=== PATIENT | female | born 2000 | race Caucasian/White ===

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

== ENCOUNTER 2025-04-25 17:12 | Outpatient (CLI) | payer BC, SELFPAY ==
[2025-04-25] VITALS (10 sets, daily range): BP systolic 132–133; BP diastolic 80; PULSE 86–103; O2SAT 97–99
--- OUTSIDE RECORDS SUMMARY | 2025-04-25 17:25 | XMS_ITS | Clinical Summary ---
Author Organization [facility] Address [address] [place] [address] Care Team Providers Care Civil Engineering Specialist Name Role Phone Lisette Guido DNP Primary Care Provi luisa Allergies Active Allergy Reactions Criticality Noted Date Comments Fish Containing Products Other (See comments) Low 0 12/22/2023 Grass Pollen Other (See comments) Low 12/22/2023 Soy Angioedema High 02/09/[address] (CYMBALTA) 30 mg capsule Take 1 capsule (30 mg total) by mouth daily Active escitalopram (LEXAPRO) 20 mg tablet Take 1 tablet (20 mg total) by mouth daily Active Breo Ellipta 200-25 mcg/dose diskus inhaler Inhale 1 puff daily 4 Active methylphenidate ER (CONCERTA) 18 mg CR tablet Take 1 tablet (18 mg total) by mouth daily Active fluticasone propionate (FLONASE) 50 mcg/actuation nasal sprayIndication s:Allergic rhinitis due to animal hair and dander Administer 2 sprays into each nostril daily 3 each 4 5 Active cetirizine (ZyrTEC) 10 mg tablet Take 1 tablet (10 mg total) by mouth daily 90 tablet 3 5 Active PNV with [id number] 27 mg iron- 1 mg tabletIndicatio ns: Take 1 tablet by mouth daily 90 tablet 3 5 Active montelukast (SINGULAIR) 10 mg tabletIndicatio ns:Maintenance Therapy for Asthma Take 1 tablet (10 mg total) by mouth nightly 90 tablet 3 5 10/20/19 26 Active Active Problems Problem Noted Date Diagnosed Date VALENTINO (generalized anxiety disorder) 10/19/2024 Assessment & Plan (10/19/2024 9:42 AM CDT): Managed by Psychiatry and Psychology Chronic and stable Moderate episode of recurrent major depressive d isorder 10/19/2024 Assessment & Plan (10/19/2024 10:15 AM CDT): Managed by Psychiatry and Psychology Chronic and stable Adjustment disorder with anxiety 10/19/2024 Assessment & Plan (10/19/2024 9:19 AM CDT): Managed by Psychiatry and Psychology Chronic and stable Marijuana smoker 10/19/2024 Assessment & Plan (10/19/2024 10:15 AM CDT): Recommend stopping marijuana usage 10/19/2024 Assessment & Plan (10/19/2024 9:02 AM CDT): +UPT Refer to [employer] Class 2 obesity without seri ous comorbidity with body mass index (BMI) of 36.0 to 36.9 in adult 10/19/2024 Environmental and seasonal allergies 10/19/2024 Assessment & Plan (10/19/2024 10:17 AM CDT): Chronic and stable Continue cetirizine 10 mg daily Continue Flonase nasal spray daily Start Singulair 10 mg nightly Medication and side effects reviewed Non-recurrent acute serous otitis media of left ear 08/30/2024 Mixed hyperlipidemia 02/29/2024 Assessment & Plan (10/19/2024 10:16 AM CDT): Labs ordered Assessment & Plan (02/29/2024 12:56 PM CDT): Fasting lipid panel reviewed. I discussed with patient we will monitor condition. Medication therapy isn't indicated. Nonpharmacological interventions such as low carb diet, high in vegetables and fruit discussed. Educated on importance of physical activity. Follow up in 1 year or sooner if needed. Patient verbalizes understanding regarding plan of care and all questions answered Attention deficit hyperactiv ity disorder (ADHD), predominantly inattentive type 12/22/2023 Assessment & Plan (10/19/2024 10:14 AM CDT): Managed by Psychiatry and Psychology Chronic and stable Assessment & Plan (12/22/2023 11:56 AM CDT): Continue Concerta 18mg daily. Continue recommendations from psychiatry. Depression with anxiety 12/22/2023 Assessment & Plan (12/22/2023 11:47 AM CDT): Follows with psychiatry. Well controlled on Cymbalta and lexapro. Annual physical exam 12/22/2023 Assessment & Plan (10/19/2024 9:19 AM CDT): Labs ordered Recommend drinking at least 64 oz of water daily Recommend at least 26g fiber daily Recommend at least 150 min of exercise weekly as tolerated Recommend taking daily multivitamin Continue eating a healthy well-balanced diet. Limit processed foods like white starches, fast food, sweets and soda. Increase your vegetable intake and limit red meat. Wear your seatbelt at all times. No texting and driving. Continue to manage your stress in a healthy manner. Follow-up 1 year for annual physical. Assessment & Plan (12/22/2023 11:47 AM CDT): Routine health maintenance objectives discussed and orders placed for any outstanding screening studies. Physical exam performed as above. Routine annual labs obtained and will be reviewed with patient when results available. Age-appropriate anticipatory guidance and counseling was provided and reviewed including: Encouraged regular physical activity--moderate activity for a total of 150 minutes per week over 3-5 days. Encouraged healthy diet with regular fresh fruits and vegetables limited in processed carbohydrates. Alcohol use Nicotine use Depression screening Mild intermittent asthma without complication Assessment & Plan (10/19/2024 10:16 AM CDT): Chronic and stable Continue Breo Ellipta 200-25 mcg daily Continue cetirizine 10 mg daily Continue Flonase nasal spray daily Start Singulair 10 mg nightly Medication and side effects reviewed Assessment & Plan (12/22/2023 11:48 AM CDT): Follows with allergy. Well controlled on Breo. Vaping nicotine dependence, tobacco product 12/01 Assessment & Plan (10/19/2024 10:16 AM CDT): Recommend discontinuing vaping of all substances Assessment & Plan (12/22/2023 11:50 AM CDT): Vapes a pod every 2 days. Allergic rhinitis 02/09/2011 Overview (08/30/2024): IgE positive to mold, tree, grass, ragweed, pollen and mouse dander Estimated Date of Delivery Comme nts Yes 06/22/2025 Resolved Problems Problem Noted Date Diagnosed Date Resolved Date Abdominal pain 12/06/2023 10/19/2024 Assessment & Plan (12/22/2023 11:48 AM CDT): Possible endometriosis. Recommend follow up with gynecology. Immunizations Immunization Administration Dates Next Due DTaP 02/28/2007, 4,2002,05/16,2002 HPV, Quadrivalent 06/07/2014 HPV9 03/30/2016,10/14/2015 Hep A, Ped Unspecified 12/04/2004 Hep A, Pediatric 01/22/2004 Hep B, Adolescent or Pediatric 2002,2001,2002 HiB 08/28/2003, 2,2002,03/16 IPV 02/28/2007, 4,2002,03/16 Influenza, Trivalent, IM (MDV) 04/25/2014 Influenza, Unspecified 10/19/2024(Deferr ed: Patient Refused),06/15/2005 MMR 12/04/2004,04/19/2003 MMRV 02/28/2007,02/09/2003 Meningococcal Conjugate (Menveo) 04/15/2018 Meningococcal MCV4P (Menactra) 06/07/2014 PPD TEST 02/29/2024 Pfizer SARS-CoV-2 Monovalent Vaccination (12+ Yrs) PURPLE 06/06/2021,11/25/2020,11/04/2020 Pneumococcal Conjugate 7-Valent 04/19/20 03,2002,2002,03/16 Tdap 05/05/2013 Varicella 02/09/2003 Surgical History Surgery Date Site/Laterality Comments TONSILLECTOMY Medical History Medical History Date Comments Asthma ADHD (attention deficit hyperactivity disorder) Anxiety Depression Ulcer, esophagus 2015 Family History Medical History Relation Name Comments ADD / ADHD Brother Arthritis Maternal Grandfather Blood Clot Maternal Grandfather Thyroid cancer Maternal Grandmother ADD / ADHD Mother Depression Mother Miscarriages / Stillbirths Mother Miscarriages / Stillbirths Mother's Sister Relation Name Status Comments Brother Maternal Grandfather Maternal Grandmother Mother Mother's Sister Social History Tobacco Use Types Packs/Day Years Used Date Smoking Tobacco: Every Day Vaping Smokeless Tobacco: Never Tobacco Cessation:Ready to Q uit: Not Asked; Counseling Given: Not Answered AUDIT-C Answer Date Recorded Q1: How often do you have a drink containing alcohol? Monthly or less 10/19/2024 Q2: How many drinks containi ng alcohol do you have on a typical day when you are drinking? Patient does not drink Q3: How often do you have si x or more drinks on one occasion? Never 10/19/2024 PHQ-2 Answer Date Recorded PHQ-2 Total Score 4 10/19/2024 PHQ-9 Answer Date Recorded PHQ-9 Total Score 8 10/19/2024 Personal Safety Answer Date Recorded Have you ever been in or are you currently in a harmful physical or emotional relationship or is someone making you feel afraid or unsafe? Denies 12/06/2023 Estimated Date of Delivery Comme nts Yes 06/22/2025 Sex and Gender Information Value Date Recorded Sex Assigned at Not on file Legal Sex Female 10:44 AM CDT Gender Identity Female 02/25/2024 8:23 PM CDT Sexual Orientation Not on file Obstetrics History Para Term AB IAB SAB Ectopic Multiple Livin g Live Births 1 Date Outcome GA Total Labor Labor/2nd/3rd Weight Sex Type Anes PTL Kriss A1 A5 Name Clin Current Last Filed Vital Signs Vital Sign Reading Time Taken Comments Blood Pressure 120/72 10/19/2024 8:08 AM CDT Pulse 96 10/19/2024 8:08 AM CDT Temperature 36.9 C (98.4 F) 08/30/2024 11:47 AM [employer] Respiratory Rate 18 10/19/2024 8:08 AM CDT Oxygen Saturation 99% 10/19/2024 8:08 AM CDT Inhaled Oxygen Concentration - - Weight 100.3 kg (221 lb 3.2 oz) 10/19/2024 8:08 AM CDT Height 165.1 cm (5' 5) 10/19/2024 8:08 AM CDT Body Mass Index 36.81 10/19/2024 8:08 AM CDT Plan of Treatment Health Maintenance Due Date Last Done Comments Hepatitis C Screening 2002 Pneumococcal vaccine <65 (1 of 1 - PPSV23, PCV20, or PCV21) 01/14/2008 04/19/2003, 2002, 2002, Additional history exists Meningococcal B Vaccine (1 o f 2 - Standard) 2018 DTaP/Tdap/Td Vaccine (7 - Td or Tdap) 05/05/2023 05/05/2013, 02/28/2007, 08/28/2003, Additional history exists Covid-19 Vaccine (4 - 2024-2 6 season) 2025 06/06/2021, 11/25/2020, 11/04/2020 Influenza Vaccine (#1) 2025 04/25/2014, 2004 Depression Screening 10/19/2025 10/19/2024, 10/19/2024, 12/22/2023 Regular Well Visit/Exam 18-64 10/19/2025, 12/22/2023, 12/22/2023 Cervical Cancer Screening 03/26/2026 03/26/2023 Hepatitis B Screening Completed 2002 , 2002, 2002 Varicella Vaccines Completed 02/28/2007, 0 02/09/2003, 02/09/2003 HPV Vaccines Completed 03/30/2016, 09/30, 06/07/2014 Insurance [facility] ACC[facility] Member Subscriber Plan / Payer (Ef fective 2015-Present) Name:MontesMaxi almonteylar Member ID:[id number] Relation to Subscriber:Child Name:CARLEEN MONTES Subscriber ID:[id number] Date of :1983 Address: [address] [place] [id number] Payer ID:[id number] (NAIC) Type: JENNIFER Address: [facility] [id number] [place] [id number] Advance Directives For more information, please contact: [phone] * Full Code (Latest Code Status on File) Date Activated Date Inactivated Comments 12/06/2023 8:27 PM 12/07/2023 5:20 PM Care Teams Civil Engineering Specialist Relationship Specialty Start Date End Date Lisette Guido DNP [id number] [facility] [address] [address] PCP - General Family Medicine 10/19/24
[2025-04-25 17:52] LABS: Hematocrit 38.0 % (37.0-47.0); Hemoglobin 12.8 g/dL (12.0-15.0); Immature Granulocyte Percent A 0.7 % (0-0.5); Lymphocytes Absolute Auto 1.88 K/mm3 (0.9-3.2); Mean Corpuscular HGB Conc 33.7 g/dl (32-36); Mean Corpuscular Hemoglobin 29.9 pg (26-34); Mean Corpuscular Volume 88.8 fl (80-100); Nucleated Red Blood Cells Absolute Auto 0.000 K/mm3 (0.0-0.012); Nucleated Red Blood Cells Perc 0.0 % (0.0-0.2); Platelet Count Result 193 k/mm3 (150-375); Red Blood Count 4.28 M/mm3 (4.2-5.4); White Blood Count 13.6 K/mm3 (4.5-10.0)
[2025-04-25 17:59] LABS: Total Protein Urine Random 6 mg/dL; Ur Ttl Prot Creatinine Ratio 0.07 mg/mg (0-0.20)
[2025-04-25 18:03] LABS: Alanine Aminotransferase 30 U/L (6-35); Albumin Level 3.5 g/dL (3.5-5.1); Alkaline Phosphatase 114 U/L (38-126); Anion Gap 8 mmol/L (4-12); Aspartate Amino Transferase 31 U/L (14-36); Bilirubin,Total 0.2 mg/dL (0.2-1.3); Blood Urea Nitrogen 7 mg/dL (7-17); Calcium 9.0 mg/dL (8.4-10.2); Carbon Dioxide 20 mmol/L (22-30); Chloride 105 mmol/L (98-107); Estimated Glomerular Filt Rate > 60; Glucose 112 mg/dL (65-110); Potassium 3.6 mmol/L (3.4-5.0); Sodium 133 mmol/L (137-145); Total Protein 6.7 g/dL (6.3-8.2); Uric Acid 6.5 mg/dL (2.5-7.5)
[2025-04-25 18:05] LABS: Add Urine Microscopic? YES; Appearance Urine Clear (Clear); Glucose Urine UA Negative (Negative); Leukocyte Esterase Ur Trace LEU/UL (Negative); Need Manual Microscopic Reviewed; Nitrate Urine Negative (Negative); Non Pathogenic Casts 0-2; Specific Grav Ur 1.015 (1.001-1.035)
--- NOTE | 2025-04-25 18:54 | PC.NURSE ---
182--notified kris moreno CNM pt labs, medications, status. OK to D/C
== END 2025-04-25 18:30 | disposition home or self-care (01) ==
LOC: ANHOBOP 17:23 → ANHLDR 17:27
PROVIDERS: Visit Provider Advanced Practice Midwife
DX: O13.9 Gestational [pregnancy-induced] hypertension without significant proteinuria, unspecified trimester (principal); Z3A.00 Weeks of gestation of pregnancy not specified
CPT/HCPCS: 36415; 59025; 80053; 81001; 82570; 84156; 84550; 85025; 99199

== ENCOUNTER 2025-05-18 11:23 | Outpatient (CLI) | payer BC, SELFPAY ==
--- NOTE | ~2025-05-18 | US_ITS ---
EXAMINATION: US OB BPP wo non-stress DATE: 05/18/2025 13:15 INDICATION: Assess amniotic fluid index during third trimester TECHNIQUE: Real-time pelvic ultrasound was performed. The interpreting radiologist was not present for the study. COMPARISON: None. FINDINGS: There is a single living fetus in vertex presentation. The placenta is posterior fundal. heart rate is 136 beats per minute (bpm). Normal amniotic fluid index of 15.9 cm (5th%-95%: 7.9-24.9 cm at 35 weeks estimated gestational age). Biophysical profile performed by the technologist: breathing (30 sec sustained breathing in 30 minutes): 2 out of 2 movement (3 gross body movements in 30 minutes): 2 out of 2 tone (one episode of bywkyyl-owhoovegb-qklmyii limb movement): 2 out of 2 Amniotic fluid pocket (2 cm): 2 out of 2 Total score: 8 out of 8 IMPRESSION: 1. Single living fetus in vertex presentation with heart rate of 136 bpm. 2. Biophysical profile 8 out of 8. 3. Normal amniotic fluid index of 15.9 cm. Reviewed, dictated and finalized at location A.
[2025-05-18 11:53] VITALS: BP 142/89; PULSE 95
[2025-05-18 11:56] VITALS: BP 151/92; PULSE 92
[2025-05-18 12:01] VITALS: BP 148/99; PULSE 90
[2025-05-18 12:10] LABS: Hematocrit 38.8 % (37.0-47.0); Hemoglobin 13.1 g/dL (12.0-15.0); Immature Platelet Fraction Pct 23.2 % (0.9-11.2); Mean Corpuscular HGB Conc 33.8 g/dl (32-36); Mean Corpuscular Hemoglobin 30.5 pg (26-34); Mean Corpuscular Volume 90.4 fl (80-100); Platelet Count Result 166 k/mm3 (150-375); Red Blood Count 4.29 M/mm3 (4.2-5.4); White Blood Count 11.5 K/mm3 (4.5-10.0)
[2025-05-18 12:16] VITALS: BP 145/91; PULSE 96
--- OUTSIDE RECORDS SUMMARY | 2025-05-18 12:16 | XMS_ITS | Data Portability ---
Author Organization [facility] Address [address] [place] [address] Assessment No assessment recorded. Plan of Treatment Reminders Order Date Submit Date Provider Last Modified By Organization Details Last Modified Time Details Appointments OB ROUTINE 2024 03:00P M Jennifer Gasca CNM Not available Not available Not available U/S OB BPP 2024 02:30P M ULTRASOUND Not available Not available Not available NST 2024 03:00P M NST SCHEDULE Not available Not available Not available OB ROUTINE 2024 03:30P M Jennifer Gasca CNM Not available Not available Not available U/S OB BPP 2024 02:30P M ULTRASOUND Not available Not available Not available NST 2024 03:00P M NST SCHEDULE Not available Not available Not available OB ROUTINE 2024 03:30P M SIERRA SolimanM Not available Not available Not available U/S OB BPP 2024 02:30P M ULTRASOUND Not available Not available Not available NST 2024 03:00P M NST SCHEDULE Not available Not available Not available OB ROUTINE 2024 03:30P M SIERRA SolimanM Not available Not available Not available U/S OB BPP 2024 02:30P M ULTRASOUND Not available Not available Not available NST 2024 03:00P M NST SCHEDULE Not available Not available Not available OB ROUTINE 2024 03:30P M Jennifer Gasca CNM Not available Not available Not available Lab None recorde d. Referral None recorde d. Procedures None recorde d. Surgeries None recorde d. Imaging US, obstetr ic, biophys ical profile + non-str ess test 2024 025 [email or web address] [place], [address], [place], [address], 05/09/2025 22:15:50 non-str ess test 2024 025 [email or web address] [address], [address], [place], [address], 05/09/2025 12:46:38 Medication Orders None recorde d. Patient TargetsNo targets recorded. Patient InstructionsNo instructions recorded. Reason for Referral None Reported. Results Created Date Observation Date Name Description Value Unit Range Abnormal Flag Note LastModifiedBy Organization Detail LastModifiedTime 05/02/2005/02/2025 CBC W/DIF F WBC 12.2 10'3/ uL 3.5-10 .5 high Not Available [facility] (Lab) [address], [place], [address], 05/03/2025 05:03:59 05/02/2005/02/2025 CBC W/DIF F RBC 4.19 10'6/ uL (based on docume nted legal sex) 3.80-5 .20 Not Available [facility] (Lab) [address] [place], [address], 05/03/2025 05:03:59 05/02/20 25 05/02/2025 CBC W/DIF F HGB 12.7 g/dL (based on docume nted legal sex) 11.6-1 5.4 Not Available [facility] (Lab) [address] [place], [address], 05/03/2025 05:03:59 05/02/20 25 05/02/2025 CBC W/DIF F HCT 37.7 % (based on docume nted legal sex) 34.0-4 5.0 Not Available [facility] (Lab) [address] [facility], [place], [address], 05/03/2025 05:03:59 05/02/20 25 05/02/2025 CBC W/DIF F MCV 90.0 fL 80.0-9 9.0 Not Available [facility] (Lab) [address] [facility], [place], [address], 05/03/2025 05:03:59 05/02/20 25 05/02/2025 CBC W/DIF F MCH 30.3 pg 27.0-3 4.0 Not Available [facility] (Lab) [address] [facility], [place], [address], 05/03/2025 05:03:59 05/02/20 25 05/02/2025 CBC W/DIF F MCHC 33.7 g/dL 32.0-3 5.5 Not Available [facility] (Lab) [address] [facility], [place], [address], 05/03/2025 05:03:59 05/02/20 25 05/02/2025 CBC W/DIF F RDW 14.3 % 11.0-1 5.0 Not Available [facility] (Lab) [address] [facility], [place], [address], 05/03/2025 05:03:59 05/02/20 25 05/02/2025 CBC W/DIF F plt 181 10'3/ uL 150-40 0 Not Available [facility] (Lab) [address] [facility], [place], [address], 05/03/2025 05:03:59 05/02/20 25 05/02/2025 CBC W/DIF F MPV 13.6 fL 8.8-12 .1 high Not Available [facility] (Lab) [address] [place], [address], 05/03/2025 05:03:59 10/01/20 25 05/02/2025 CBC W/DIF F NRBC's 0.0 % 0.0 Not Available [facility] (Lab) [address] [facility], [place], [address], 05/03/2025 05:03:59 05/02/20 25 05/02/2025 CBC W/DIF F absolute NRBCs 0.0 10'3/ uL no refere nce range establ ished Not Available [facility] (Lab) [address] [facility], [place], [address], 05/03/2025 05:03:59 05/02/20 25 05/02/2025 CBC W/DIF F neutrophils 77.0 % 34.0-7 3.0 high Not Available [facility] (Lab) [address] [place], [address], 05/03/2025 05:03:59 05/02/20 25 05/02/2025 CBC W/DIF F lymphocytes 12.8 % 15.0-5 0.0 low Not Available [facility] (Lab) [address] [facility], [place], [address], 05/03/2025 05:03:59 05/02/20 25 05/02/2025 CBC W/DIF F monocytes 5.7 % 1.0-15 .0 Not Available [facility] (Lab) [address] [place], [address], 05/03/2025 05:03:59 05/02/20 25 05/02/2025 CBC W/DIF F eosinophils 3.4 % 0.0-8. 0 Not Available [facility] (Lab) [address] [place], [address], 05/03/2025 05:03:59 05/02/20 25 05/02/2025 CBC W/DIF F basophils 0.2 % 0.0-2. 0 Not Available [facility] (Lab) [address] [place], [address], 05/03/2025 05:03:59 05/02/20 25 05/02/2025 CBC W/DIF F immature granulocytes 0.9 % no define d refere nce range Immat ure Granu locyt es (IG) repre sents autom ated enume ratio n of Metam yeloc ytes, Myelo cytes and Promy elocy britton when IG is < 5%. Blast s are not inclu ded in IG and repor khari separ ately if prese nt. Not Available [facility] (Lab) [address] [facility], [place], [address], 05/03/2025 05:03:59 05/02/20 25 05/02/2025 CBC W/DIF F absolute neutrophils 9.4 10'3/ uL 1.5-8. 0 high Not Available [facility] (Lab) [address] [facility], [place], [address], 05/03/2025 05:03:59 05/02/20 25 05/02/2025 CBC W/DIF F absolute lymphocytes 1.6 10'3/ uL 1.0-4. 0 Not Available [facility] (Lab) [address] [facility], [place], [address], 05/03/2025 05:03:59 05/02/20 25 05/02/2025 CBC W/DIF F absolute monocytes 0.7 10'3/ uL 0.2-1. 0 Not Available [facility] (Lab) [address] [facility], [place], [address], 05/03/2025 05:03:59 05/02/20 25 05/02/2025 CBC W/DIF F absolute eosinophils 0.4 10'3/ uL 0.0-0. 6 Not Available [facility] (Lab) [address] [facility], [place], [address], 05/03/2025 05:03:59 05/02/20 25 05/02/2025 CBC W/DIF F absolute basophils 0.0 10'3/ uL 0.0-0. 3 Not Available [facility] (Lab) [address] [facility], [place], [address], 05/03/2025 05:03:59 05/02/20 25 05/02/2025 CBC W/DIF F absolute immature granulocytes 0.1 10'3/ uL 0.00-0 .10 Refer ence range s for nonbi nary/ inter sex or unspe cifie d gende r patie nts have not been estab lishe d. Plemarina e [facility] for range s estab lishe d for cisge nder patie nts and evalu ate in the clini jossy zbigniew xt of the indiv idual patie nt: https ://arron boone book. nm.or g/gen derx Not Available [facility] (Lab) [address] [facility], [place], [address], 05/03/2025 05:03:59 05/02/20 25 05/02/2025 PROTE IN/CR EATIN INE RATIO , URINE creatinine, urine 166.1 mg/dL R-No refer ence range estab lishe d for this assay Not Available [facility] (Lab) [address] [facility], [place], [address], 05/03/2025 05:04:00 05/02/20 25 05/02/2025 PROTE IN/CR EATIN INE RATIO , URINE protein, urine 17 mg/dL R-No refer ence range estab lishe d for this assay Not Available [facility] (Lab) [address] [place], [address], 05/03/2025 05:04:00 05/02/20 25 05/02/2025 PROTE IN/CR EATIN INE RATIO , URINE protein/crea tinine ratio, urine 0.10 . No Refer ence Range avail able for Rando m Urine s. A prote in to creat inine ratio of >=0.1 9 is a good predi ctor of signi fican t prote inuri a. A level of <0.14 can rule out signi fican t prote inuri a. Not Available [facility] (Lab) [address] [facility], [place], [address], 05/03/2025 05:04:00 05/02/2005/02/2025 URIC ACID uric acid 7.7 mg/dL 2.3-6. 6 high Not Available [facility] (Lab) [address] [facility], [place], [address], 05/03/2025 05:04:00 05/02/2005/02/2025 CMP(C OMPRE HENSI VE METAB OLIC PANEL ) sodium 139 mmol/ L 133-14 6 Not Available [facility] (Lab) [address] [place], [address], 05/03/2025 05:04:00 05/02/2005/02/2025 CMP(C OMPRE HENSI VE METAB OLIC PANEL ) potassium 3.9 mmol/ L 3.5-5. 1 Not Available [facility] (Lab) [address] [facility], [place], [address], 05/03/2025 05:04:00 05/02/2005/02/2025 CMP(C OMPRE HENSI VE METAB OLIC PANEL ) chloride 107 mmol/ L 98-107 Not Available [facility] (Lab) [address] [place], [address], 05/03/2025 05:04:00 05/02/2005/02/2025 CMP(C OMPRE HENSI VE METAB OLIC PANEL ) carbon dioxide 22 mmol/ L 21-31 Not Available [facility] (Lab) [address] [place], [address], 05/03/2025 05:04:00 05/02/2005/02/2025 CMP(C OMPRE HENSI VE METAB OLIC PANEL ) anion gap 10 mmol/ L 4-13 Not Available [facility] (Lab) [address] [place], [address], 05/03/2025 05:04:00 10/01/20 25 05/02/2025 CMP(C OMPRE HENSI VE METAB OLIC PANEL ) blood urea nitrogen 7 mg/dL 7-25 Not Available [facility] (Lab) [address] [facility], [place], [address], 05/03/2025 05:04:00 05/02/20 25 05/02/2025 CMP(C OMPRE HENSI VE METAB OLIC PANEL ) creatinine 0.73 mg/dL 0.60-1 .30 Not Available [facility] (Lab) [address] [facility], [place], [address], 05/03/2025 05:04:00 05/02/2005/02/2025 CMP(C OMPRE HENSI VE METAB OLIC PANEL ) egfrcr (CKD-epi 2020) >90 mL/mi n/1.7 3_m2 >=60 Not Available [facility] (Lab) [address] [facility], [place], [address], 05/03/2025 05:04:00 05/02/2005/02/2025 CMP(C OMPRE HENSI VE METAB OLIC PANEL ) calcium 9.7 mg/dL 8.3-10 .5 Not Available [facility] (Lab) [address] [facility], [place], [address], 05/03/2025 05:04:00 05/02/2005/02/2025 CMP(C OMPRE HENSI VE METAB OLIC PANEL ) glucose 98 mg/dL 70-100 Not Available [facility] (Lab) [address] [facility], [place], [address], 05/03/2025 05:04:00 05/02/2005/02/2025 CMP(C OMPRE HENSI VE METAB OLIC PANEL ) protein, total 5.7 g/dL 6.4-8. 3 low Not Available [facility] (Lab) [address] [place], [address], 05/03/2025 05:04:00 05/02/20 25 05/02/2025 CMP(C OMPRE HENSI VE METAB OLIC PANEL ) albumin 3.3 g/dL 3.5-5. 0 low Not Available [facility] (Lab) [address] [facility], [place], [address], 05/03/2025 05:04:00 05/02/20 25 05/02/2025 CMP(C OMPRE HENSI VE METAB OLIC PANEL ) ALT 22 units /L 9-43 Not Available [facility] (Lab) [address] [facility], [place], [address], 05/03/2025 05:04:00 05/02/2005/02/2025 CMP(C OMPRE HENSI VE METAB OLIC PANEL ) alkaline phosphatase 113 units /L 34-104 high Not Available [facility] (Lab) [address] [facility], [place], [address], 05/03/2025 05:04:00 05/02/20 25 05/02/2025 CMP(C OMPRE HENSI VE METAB OLIC PANEL ) AST 19 units /L 13-39 Not Available [facility] (Lab) [address] [facility], [place], [address], 05/03/2025 05:04:00 05/02/20 25 05/02/2025 CMP(C OMPRE HENSI VE METAB OLIC PANEL ) bilirubin, total 0.2 mg/dL 0.2-1. 2 Not Available [facility] (Lab) [address] [facility], [place], [address], 05/03/2025 05:04:00 05/09/2005/09/2025 CBC W/DIF F WBC 11.6 10'3/ uL 3.5-10 .5 high Not Available [facility] (Lab) [address] [place], [address], 05/10/2025 04:54:09 05/09/2005/09/2025 CBC W/DIF F RBC 4.41 10'6/ uL (based on docume nted legal sex) 3.80-5 .20 Not Available [facility] (Lab) [address], [place], [address], 05/10/2025 04:54:09 05/09/20 25 05/09/2025 CBC W/DIF F HGB 13.5 g/dL (based on docume nted legal sex) 11.6-1 5.4 Not Available [facility] (Lab) [address], [place], [address], 05/10/2025 04:54:09 05/09/2005/09/2025 CBC W/DIF F HCT 40.3 % (based on docume nted legal sex) 34.0-4 5.0 Not Available [facility] (Lab) [address], [place], [address], 05/10/2025 04:54:09 05/09/20 25 05/09/2025 CBC W/DIF F MCV 91.4 fL 80.0-9 9.0 Not Available [facility] (Lab) [address], [place], [address], 05/10/2025 04:54:09 05/09/20 25 05/09/2025 CBC W/DIF F MCH 30.6 pg 27.0-3 4.0 Not Available [facility] (Lab) [address] [place], [address], 05/10/2025 04:54:09 05/09/2005/09/2025 CBC W/DIF F MCHC 33.5 g/dL 32.0-3 5.5 Not Available [facility] (Lab) [address] [place], [address], 05/10/2025 04:54:09 05/09/20 25 05/09/2025 CBC W/DIF F RDW 14.3 % 11.0-1 5.0 Not Available [facility] (Lab) [address] [facility], [place], [address], 05/10/2025 04:54:09 05/09/20 25 05/09/2025 CBC W/DIF F plt 182 10'3/ uL 150-40 0 Not Available [facility] (Lab) [address] [facility], [place], [address], 05/10/2025 04:54:09 05/09/20 25 05/09/2025 CBC W/DIF F MPV 14.1 fL 8.8-12 .1 high Not Available [facility] (Lab) [address] [facility], [place], [address], 05/10/2025 04:54:09 05/09/2005/09/2025 CBC W/DIF F NRBC's 0.0 % 0.0 Not Available [facility] (Lab) [address] [facility], [place], [address], 05/10/2025 04:54:09 05/09/20 25 05/09/2025 CBC W/DIF F absolute NRBCs 0.0 10'3/ uL no refere nce range establ ished Not Available [facility] (Lab) [address] [facility], [place], [address], 05/10/2025 04:54:09 05/09/20 25 05/09/2025 CBC W/DIF F neutrophils 78.5 % 34.0-7 3.0 high Not Available [facility] (Lab) [address] [facility], [place], [address], 05/10/2025 04:54:09 05/09/20 25 05/09/2025 CBC W/DIF F lymphocytes 11.0 % 15.0-5 0.0 low Not Available [facility] (Lab) [address] [facility], [place], [address], 05/10/2025 04:54:09 05/09/20 25 05/09/2025 CBC W/DIF F monocytes 5.1 % 1.0-15 .0 Not Available [facility] (Lab) [address] [facility], [place], [address], 05/10/2025 04:54:09 05/09/20 25 05/09/2025 CBC W/DIF F eosinophils 4.1 % 0.0-8. 0 Not Available [facility] (Lab) [address] [facility], [place], [address], 05/10/2025 04:54:09 05/09/2005/09/2025 CBC W/DIF F basophils 0.4 % 0.0-2. 0 Not Available [facility] (Lab) [address] [facility], [place], [address], 05/10/2025 04:54:09 05/09/2005/09/2025 CBC W/DIF F immature granulocytes 0.9 % no define d refere nce range Immat ure Granu locyt es (IG) repre sents autom ated enume ratio n of Metam yeloc ytes, Myelo cytes and Promy elocy britton when IG is < 5%. Blast s are not inclu ded in IG and repor khari separ ately if prese nt. Not Available [facility] (Lab) [address] [facility], [place], [address], 05/10/2025 04:54:09 05/09/20 25 05/09/2025 CBC W/DIF F absolute neutrophils 9.1 10'3/ uL 1.5-8. 0 high Not Available [facility] (Lab) [address] [facility], [place], [address], 05/10/2025 04:54:09 05/09/20 25 05/09/2025 CBC W/DIF F absolute lymphocytes 1.3 10'3/ uL 1.0-4. 0 Not Available [facility] (Lab) [address] [facility], [place], [address], 05/10/2025 04:54:09 05/09/20 25 05/09/2025 CBC W/DIF F absolute monocytes 0.6 10'3/ uL 0.2-1. 0 Not Available [facility] (Lab) [address] [facility], [place], [address], 05/10/2025 04:54:09 05/09/2005/09/2025 CBC W/DIF F absolute eosinophils 0.5 10'3/ uL 0.0-0. 6 Not Available [facility] (Lab) [address] [facility], [place], [address], 05/10/2025 04:54:09 05/09/20 25 05/09/2025 CBC W/DIF F absolute basophils 0.1 10'3/ uL 0.0-0. 3 Not Available [facility] (Lab) [address] [facility], [place], [address], 05/10/2025 04:54:09 05/09/2005/09/2025 CBC W/DIF F absolute immature granulocytes 0.1 10'3/ uL 0.00-0 .10 Refer ence range s for nonbi nary/ inter sex or unspe cifie d gende r patie nts have not been estab lishe d. Plemarina e refer to the ramiroo wing table for range s estab lishe d for cisge nder patie nts and evalu ate in the clini jossy zbigniew xt of the indiv idual patie nt: https ://la paolo book. nm.or g/gen derx Not Available [facility] (Lab) [address] [facility], [place], [address], 05/10/2025 04:54:09 05/09/2005/09/2025 CMP(C OMPRE HENSI VE METAB OLIC PANEL ) sodium 138 mmol/ L 133-14 6 Not Available [facility] (Lab) [address] [facility], [place], [address], 05/10/2025 04:54:09 05/09/2005/09/2025 CMP(C OMPRE HENSI VE METAB OLIC PANEL ) potassium 4.0 mmol/ L 3.5-5. 1 Not Available [facility] (Lab) [address] [facility], [place], [address], 05/10/2025 04:54:09 05/09/20 25 05/09/2025 CMP(C OMPRE HENSI VE METAB OLIC PANEL ) chloride 105 mmol/ L 98-107 Not Available [facility] (Lab) [address] [facility], [place], [address], 05/10/2025 04:54:09 05/09/2005/09/2025 CMP(C OMPRE HENSI VE METAB OLIC PANEL ) carbon dioxide 23 mmol/ L 21-31 Not Available [facility] (Lab) [address] [facility], [place], [address], 05/10/2025 04:54:09 05/09/20 25 05/09/2025 CMP(C OMPRE HENSI VE METAB OLIC PANEL ) anion gap 10 mmol/ L 4-13 Not Available [facility] (Lab) [address] [facility], [place], [address], 05/10/2025 04:54:09 05/09/20 25 05/09/2025 CMP(C OMPRE HENSI VE METAB OLIC PANEL ) blood urea nitrogen 6 mg/dL 7-25 low Not Available [facility] (Lab) [address] [facility], [place], [address], 05/10/2025 04:54:09 05/09/20 25 05/09/2025 CMP(C OMPRE HENSI VE METAB OLIC PANEL ) creatinine 0.71 mg/dL 0.60-1 .30 Not Available [facility] (Lab) [address] [facility], [place], [address], 05/10/2025 04:54:09 05/09/20 25 05/09/2025 CMP(C OMPRE HENSI VE METAB OLIC PANEL ) egfrcr (CKD-epi 2020) >90 mL/mi n/1.7 3_m2 >=60 Not Available [facility] (Lab) [address] [facility], [place], [address], 05/10/2025 04:54:09 05/09/20 25 05/09/2025 CMP(C OMPRE HENSI VE METAB OLIC PANEL ) calcium 9.5 mg/dL 8.3-10 .5 Not Available [facility] (Lab) [address] [facility], [place], [address], 05/10/2025 04:54:09 05/09/20 25 05/09/2025 CMP(C OMPRE HENSI VE METAB OLIC PANEL ) glucose 112 mg/dL 70-100 high Not Available [facility] (Lab) [address] [facility], [place], [address], 05/10/2025 04:54:09 05/09/20 25 05/09/2025 CMP(C OMPRE HENSI VE METAB OLIC PANEL ) protein, total 6.0 g/dL 6.4-8. 3 low Not Available [facility] (Lab) [address] [place], [address], 05/10/2025 04:54:09 05/09/20 25 05/09/2025 CMP(C OMPRE HENSI VE METAB OLIC PANEL ) albumin 3.4 g/dL 3.5-5. 0 low Not Available [facility] (Lab) [address] [place], [address], 05/10/2025 04:54:09 05/09/2005/09/2025 CMP(C OMPRE HENSI VE METAB OLIC PANEL ) ALT 17 units /L 9-43 Not Available [facility] (Lab) [address] [place], [address], 05/10/2025 04:54:09 05/09/20 25 05/09/2025 CMP(C OMPRE HENSI VE METAB OLIC PANEL ) alkaline phosphatase 127 units /L 34-104 high Not Available [facility] (Lab) [address] [place], [address], 05/10/2025 04:54:09 05/09/20 25 05/09/2025 CMP(C OMPRE HENSI VE METAB OLIC PANEL ) AST 15 units /L 13-39 Not Available [facility] (Lab) [address] [facility], [place], [address], 05/10/2025 04:54:09 05/09/20 25 05/09/2025 CMP(C OMPRE HENSI VE METAB OLIC PANEL ) bilirubin, total 0.3 mg/dL 0.2-1. 2 Not Available [facility] (Lab) [address] [facility], [place], [address], 05/10/2025 04:54:09 05/09/20 25 05/09/2025 URIC ACID uric acid 7.2 mg/dL 2.3-6. 6 high Not Available [facility] (Lab) [address] [facility], [place], [address], 05/10/2025 04:54:10 05/09/20 25 05/09/2025 PROTE IN/CR EATIN INE RATIO , URINE creatinine, urine 96.8 mg/dL R-No refer ence range estab lishe d for this assay Not Available [facility] (Lab) [address] [facility], [place], [address], 05/10/2025 04:54:10 05/09/20 25 05/09/2025 PROTE IN/CR EATIN INE RATIO , URINE protein, urine 12 mg/dL R-No refer ence range estab lishe d for this assay Not Available [facility] (Lab) [address] [facility], [place], [address], 05/10/2025 04:54:10 05/09/20 25 05/09/2025 PROTE IN/CR EATIN INE RATIO , URINE protein/crea tinine ratio, urine 0.12 . No Refer ence Range avail able for Rando m Urine s. A prote in to creat inine ratio of >=0.1 9 is a good predi ctor of signi darrel t prote inuri a. A level of <0.14 can rule out signi fican t prote inuri a. Not Available [facility] (Lab) [address], [place], [address], 05/10/2025 04:54:10 04/20/20 25 04/20/2025 US, obste tric, follo w-up No observ ation record ed. [facility] [address], [place], [address], 04/20/2025 16:55:54 04/20/20 25 04/20/2025 US, obste tric, follo w-up No observ ation record ed. [address] [facility], [place], [address], 04/25/2025 12:07:46 04/25/20 25 04/25/2025 non-s tress test No observ ation record ed. [id number] [facility], [place], [address], 04/27/2025 13:18:36 04/25/20 25 04/25/2025 non-s tress test No observ ation record ed. [email or web address] [place] [address] [address] [facility], [place], [address], 04/26/2025 14:56:43 05/04/20 25 05/04/2025 non-s tress test No observ ation record ed. [email or web address] [place] [address] [address], [place], [address], 05/06/2025 15:57:29 05/04/20 non-s tress test No observ ation record ed. [email or web address] [place] [address] [address], [place], [address], 05/04/2025 16:57:23 05/09/20 25 05/09/2025 US, obste tric, bioph ysica l profi le + non-s tress test No observ ation record ed. [email or web address] [place] [address], [place], [address], 05/09/2025 15:09:50 05/09/20 25 05/09/2025 US, obste tric, bioph ysica l profi le + non-s tress test No observ ation record ed. [email or web address] [address], [place], [address], 05/09/2025 13:08:29 05/09/20 25 05/09/2025 non-s tress test No observ ation record ed. [email or web address] [place] [address], [place], [address], 05/09/2025 12:56:32 05/09/20 non-s tress test No observ ation record ed. [email or web address] [place] [address], [place], [address], 05/09/2025 12:44:26 Result Notes None recorded. Problems Name Problem SNOMED Code Status Onset Date Resolution Date Notes Provider Name and Address Organization Details Recorded Time Attention deficit hyperacti vity disorder 085739568 Active 2024 Leticia reagan, [facility] 15:23:54 History of gastric ulcer 991075182 Active 2024 Leticia reagan, [facility] 15:24:09 41465522 Active 2024 Leticia reagan, [facility] 15:26:51 Mixed anxiety and depressiv e disorder 640299587 Active 2024 duloxetin e lexapro Jennifer Gasca, VERON[address], [place], [address], [facility] 5 09:28:19 History of asthma 858455066 Active 2024 inhaler Jennifer Gasca CNM [address], [place], [address], [facility] 5 09:27:20 Attention deficit hyperacti vity disorder, combined type 78235690 Active 2024 Jennifer Gasca CNM [address], [place], [address], [facility] 5 09:27:28 Mixed anxiety and depressiv e disorder 737825731 Active 2024 duloxetin e lexapro Jennifer Gasca CNM [address], [place], [address], [facility] 5 09:28:19 Obesity 160022085 Active 2024 BMI 36 bASA daily weekly testing @ 37wks Amanda reagan, [facility] 5 09:48:09 Hypertens ion AND/OR vomiting complicat ing childbirt h AND/OR puerperiu m 044856060 Active 2024 weekly testing off work Jennifer Gasca CNM [address], [place], [address], [facility] 5 15:09:04 Problem Notes None recorded. Procedures Surgical History Date Name Laterality Status Provider Name and Address Organization Details Recorded Time 03/26/20 IUD Removal completed YOLANDA Briceño-DEYSI [address], [place], [address], [facility] 03/26/2023 11:48:10 03/26/20 23 Date of Last Pap Smear completed Leticia Pratt [facility] 12/27/2024 13:23:55 08/02/19 21 extraction of wisdom tooth completed Leticia Pratt [facility] 12/27/2024 19:48:35 08/02/19 10 Tonsillectomy completed Leticia Pratt [facility] 12/27/2024 19:47:49 08/02/19 04 procedure on ear completed Leticia Pratt [facility] 12/27/2024 19:48:18 Imaging Results None recorded. Procedure Notes None recorded. Medical Equipment None Reported. Allergies Allergen ID Allergen Name Allergen Category Reaction Reaction Severity Criticality Documentation Date Start Date Code Code System Note Provider Name and Address Organization Details Recorded Time 12781 grass pollen environme nt,medica tion Not available Not available Not available 07/19/2020 Comme nt: Locat ion: [facility] [place] [facility]; Leticia reagan [facility] 3 16:10:10 01490 Fish (substanc e) food,medi cation Not available Not available Not available 07/19/2020 32218 1005 SNOMED Comme nt: Locat ion: Alistair michaud [facility] [place]; Leticia reagan [facility] 3 16:10:10 Medications Name Sig Start Date Stop Date Status Note LastModified by Organization Details LastModified Time amoxicill in 500 mg capsule TAKE 1 CAPSULE BY MOUTH THREE TIMES A DAY UNTIL GONE 03/26 completed Not Available Not Available Not Available fluconazo le 100 mg tablet TAKE 2 TABLETS BY MOUTH TODAY, THEN 1 TABLET DAILY TILL GONE 03/26 completed Not Available Not Available Not Available azithromy teri 250 mg tablet TAKE 2 TABLETS BY MOUTH TODAY, THEN TAKE 1 TABLET DAILY FOR 4 DAYS DIRECTED 11/13 completed Not Available Not Available Not Available hydrocodo ne 5 mg-acetam inophen 325 mg tablet TAKE 1 TABLET BY MOUTH EVERY 4 TO 6 HOURS NEEDED FOR PAIN 03/26 completed Not Available Not Available Not Available amoxicill in 875 mg tablet TAKE 1 TABLET BY MOUTH TWICE A DAY FOR 10 DAYS 04/20 completed Not Available Not Available Not Available fluticaso ne 500 mcg-salme terol 50 mcg/dose blistr powdr for inhalatio n INHALE 1 PUFF BY MOUTH TWICE DAILY active Not Available Not Available No t Available monteluka st 10 mg tablet TAKE 1 TABLET BY MOUTH EVERY DAY AT NIGHT 12/27 completed Not Available Not Available Not Available methylphe nidate ER 18 mg tablet,ex tended release 24 hr TAKE 1 TABLET BY MOUTH EVERY DAY 12/27 completed Not Available Not Available Not Available fluticaso ne propionat e 50 mcg/actua tion nasal spray,wilbur pension SPRAY 2 SPRAYS INTO EACH NOSTRIL EVERY DAY active Not Available Not Available No t Available NuvaRing 0.12 mg-0.015 mg/24 hr vaginal INSERT 1 RING VAGINALL Y DIRECTED . REMOVE AFTER 3 WEEKS & WAIT 7 DAYS BEFORE INSERTIN G A NEW RING 03/26 completed Prescrib ed Elsewher e: No Locat ion: [facility] odify By: kayy daugherty DateTime : 08/09/19 03:42:53 PM Not Available Not Available Not Available escitalop brandee 20 mg tablet TAKE 1 TABLET BY MOUTH EVERY DAY active Not Available Not Available No t Available Singulair 4 mg oral granules in packet 12/27 completed Prescrib ed Elsewher e: Yes Loca tion: [facility] odify By: narinder meadeuntleticia DateTime : 05/19/20 03:00:00 PM Not Available Not Available Not Available duloxetin e 30 mg capsule,d elayed release TAKE 1 CAPSULE BY MOUTH EVERY DAY active Not Available Not Available No t Available Flovent HFA 44 mcg/actua tion aerosol inhaler inhale 2 puff by inhalati on route 2 times every day 03/26 completed Prescrib ed Elsewher e: Yes [facility] By: narinder Jaimes ncounter DateTime : 05/19/20 03:00:00 PM Not Available Not Available Not Available Symbicort 160 mcg-4.5 mcg/actua tion HFA aerosol inhaler TAKE 2 PUFFS BY MOUTH TWICE A DAY 11/13 completed Not Available Not Available Not Available ProAir RespiClic k 90 mcg/actua tion breath activated inhale 2 puff by inhalati on route every 4 - 6 hours as needed 12/27 completed Prescrib lyndon jaimes: Yes Loca tion: [facility] odify By: narinder meadeuntleticia DateTime : 05/19/20 03:00:00 PM Not Available Not Available Not Available Breo Ellipta 200 mcg-25 mcg/dose powder for inhalatio n INHALE 1 PUFF BY MOUTH DAILY. RINSE MOUTH 12/27 completed Not Available Not Available Not Available 24Hour Allergy 10 mg tablet 11/13 completed Not Available Not Available Not Available M-Dl Plus 27 mg iron-1 mg tablet TAKE 1 TABLET BY MOUTH EVERY DAY active Not Available Not Available No t Available Vitals Date Recorded Body height Body mass index (BMI) Body weight Systolic And Diastolic Provider Name and Address Organization Details Last Updated DateTime 05/09/2025 165.1 cm 41.1 kg/m2 234518.32 g 140/91 mm[Hg] Soraya Douglas [facility] 05/09/2025 11:16:04 Social History Question Answer Notes LastModified by Organizat ion Details LastModified Time Tobacco Smoking Status Former Smoker Leticia reagan, [facility] 12/27/2024 15:26:37 Do You Have An Advance Directive? No Information not available 11/13/2024 If You Are , What Was Your Level Of Alcohol Consumption Prior To ? Occasional [email or web address] Information not available 12/27/2024 How Many Years Have You Consumed Alcohol? 2 Information not available 03/26/2023 Are You Blind Or Do You Have Difficulty Seeing? No Information not available 03/26/2023 What Is Your Level Of Caffeine Consumption? Moderate Information not available 03/26/2023 How Much Tobacco Do You Chew? None Information not available 03/26/2023 In The 14 Days Before Symptom Onset, Have You Had Close Contact With A Laboratory-confir med COVID-19 While That Case Was Ill? No Information not available 03/26/2023 In The 14 Days Before Symptom Onset, Have You Had Close Contact With A Person Who Is Under Investigation For COVID-19 While That Person Was Ill? No Information not available 03/26/2023 Have You Been To An Area Known To Be High Risk For COVID-19? No Information not available 03/26/2023 Are You Deaf Or Do You Have Serious Difficulty Hearing? No Information not available 03/26/2023 What Type Of Diet Are You Following? REGULAR Information not available 03/26/2023 What Is The Highest Grade Or Level Of School You Have Completed Or The Highest Degree You Have Received? [id number] Information not available 11/13/2024 Are There Any Guns Present In Your Home? No Information not available 03/26/2023 Do You Use Protection During Sex? No Information not available 03/26/2023 Do You Use Your Seat Belt Or Car Seat Routinely? Yes Information not available 03/26/2023 Are You Sexually Active? Yes [email or web address] Information not available 04/20/2025 Do You Have Smoke And Carbon Monoxide Detectors In Your Home? Yes Information not available 03/26/2023 At What Age Did You Start Smoking Tobacco? 18 Information not available 03/26/2023 How Much Tobacco Do You Smoke? 1 PPW Information not available 03/26/2023 Do You Use Sunscreen Routinely? No Information not available 03/26/2023 Has Tobacco Cessation Counseling Been Provided? No [email or web address] Information not available 04/20/2025 How Many Years Have You Smoked Tobacco? 5 Information not available 03/26/2023 Have You Used IV Drugs? No Information not available 03/26/2023 Do You Have Difficulty Walking Or Climbing Stairs? No [email or web address] Information not available 12/27/2024 Sex: Unknown Functional Status Question Answer Note LastModified by Organizat ion Details LastModified Time Do you use any illicit or recreational drugs? Yes weed [email or web address] Information not available 12/27/2024 Do you or have you ever used any other forms of tobacco or nicotine? Yes [email or web address] Information not available 12/27/2024 What is your level of alcohol consumption? None [email or web address] Information not available 12/27/2024 Are you currently employed? Yes [email or web address] Information not available 04/20/2025 Are you able to walk independently without assistance or assistive devices? [email or web address] Information not available 03/26/2023 Are you able to care for yourself independently? 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 No [email or web address] Information not available 12/27/2024 Do you or have you ever used e-cigarettes or vape? Current user of electronic cigarettes [email or web address] Information not available 12/27/2024 What is your exercise level? None Information not available 03/26/2023 Mental Status Question Answer Note LastModified by Organization D etails LastModified Time Do you feel stressed (tense, restless, nervous, or anxious, or unable to sleep at night)? [id number] Information not available 11/13/2024 Family History Relationship Description Onset Age of this Age Resolved Age Notes LastModified by Organization Details LastModified Time Mother Anxiety disorder Not available 2022 11:23:34 Mother Depressive disorder Not available 2022 11:23:34 Mother Hypertensive disorder Not available 12/27 19:47:04 Maternal Grandmother Disorder of thyroid gland Not available 2022 11:23:34 Maternal Grandmother Anxiety disorder Not available 2022 11:23:34 Brother Anxiety disorder Not available 2022 11:23:34 Brother Depressive disorder Not available 2022 11:23:34 Maternal Grandfather Blood coagulation disorder Not available 2022 11:23:34 Notes:Maternal grandmother: Thyroid disease Mother: Hypertension Medical History Condition Response Allergies (Food, seasonal, environmental ) Y Other N Breast Cancer N Drug/Latex Allergies/Reactions Y Blood Transfusion N Dermatologic Disorders N Lung Disease N Defects or Inherited Disease N Breast Problem N Gestational Diabetes N Hematologic disorders N Anesthesia Complications N History of STI N Deep Vein Thrombosis N Polycystic ovary syndrome N Anxiety Disorder Y Autoimmune disease N Arthritis N Infertility N Polyps N Acid Reflux (GERD) N History of abnormal pap N Cancer N Stroke N Varicosities N Neurologic/Epilepsy Y Endometriosis N High Cholesterol N Headaches N Fibromyalgia N Kidney Disease N Heart Problems N Kidney or Bladder Problems N Thyroid Problems N GI Problems Y Eating Disorder N Anemia N Art (IVF or FET) N Psychiatric Illness Y Ovarian Cancer N Diabetes N Pulmonary (TB, Asthma) N Hepatitis/Liver Disease N No Past Medical History N Eczema N Urinary Tract Infection N Abuse/Domestic Violence N Asthma Y Trauma/Violence N Depression/ depression Y Heart Disease N Pre-Eclampsia N Hypertension N Osteoporosis N Thrombophilias N Gynecological History Statement/Question Response Date of Last Mammogram Flow Moderate Date of LMP 09/15/2024 N Was last menstrual period normal Y STIs/STDs N Date of control 04/15/2021 Date of Last Colonoscopy N/A Desired Control Method N/A Abnormal Pap N On BCP's at Conception? N HPV Vaccine Y Duration of Flow (days) 6 Current Control Method Age at First Child 25 Frequency of Cycle (Q days) 26 Sexually Active? Y Menses Monthly Y Date of DEXA bone scan Age of first menstrual cycle 14 Date of Last Pap Smear 03/26/2023 Sexual Problems? N LMP Definite N Obstetrics History GPAL:G 1 P 0 0 0 0 Type Value Living 0 Total 1 Past Encounters Encounter ID Performer Location Encounter Start Date Encounter Closed Date Diagnosis/Indication Diagnosis SNOMED-CT Code Diagnosis ICD10 Code Diagnosis IMO Codes Diagnosis Note [id number] Brook Singh [facility] [address] [address] 03/26/2023 11:12:18 03/29/2023 16:19:17 Gynecologic examination 58322988 Z01.419 Take Calcium with Vitamin D 1200mg daily if not receiving in daily diet. It is strongly advised to have an annual flu shot and up can obtain at most pharmacies . If you have not had a TDap shot in the last 10 years you should obtain one as well. Discussed with patient & provided with informatio n regarding Gardisil vaccine to prevent the 4 strains for HPV that cause cervical cancer if under age 26. Encourage safe sexual practices, to use condoms and limit partners if not already in a monogamous relationsh ip. Do monthly self breast exams. Have mammogram yearly or every other year depending on family history. BRCA testing is now available for patients with strong genetic history of female cancer. If interested contact the office. Engage in daily exercise of low impact aerobic exercise 45-60 minutes 4-5 times weekly. Avoid tobacco and illicit drugs as well as using moderation with alcohol intake less than 1-2 8 oz beverages daily. This lifestyle behavior pattern will lead to less health conditions and longer life span. If BMI greater than 25 weight watchers or dietary consult advised. Patient received above instructio ns, and questions have been answered. If you have any questions please call or respond to this email. Patient was made aware of the patient portal and may obtain a paper copy of today's plan if desired. Pap sentSTD Screen sentGeneti c Screen discussedC olon Screen naDexa Screen naRoutine Labs PCP Removal of intrauterine device 00172906 Z30.432 It was explained that she may have bleeding or spotting after the removal of the device today as well. If cannot see the strings of this device we will need to get an US image to make that the device is still in place and not in an unobtainab le position. She expressed understand ing of all the above instructio ns. [id number] Fritz Joya MD [facility] [address] [address] 11/13/2024 11:37:07 11/13/2024 15:30:16 Amenorrhea 89885724 N91.2 this patient is a 24-year-ol d female who presents for amenorrhea . She is a positive test. Ultrasound revealed a 1st trimester gestation. Patient has no complaints . We talked about early care. Talked about genetic screening. We talked about her ultrasound results. We talked about the 12 week ultrasound that has genetic screening components . She was given recommenda tions on exercise, diet, over-the-c ounter medication s. We reviewed her obstetric history. We reviewed her medical history. We reviewed her social history. She will begin routine care at her next visit. [id number] Fritz Joya MD [facility] [address] [address] 11/13/2024 11:37:49 11/13/2024 13:06:13 [id number] Fritz Joya MD [facility] [address],[place] [address] 12/11/2024 15:00:39 12/11/2024 15:42:58 screening 373148079 Z36.82 O20.0 Z3A.12 [id number] [facility] [address],[place] [address] 12/27/2024 14:37:36 12/30/2024 00:24:44 70569004 Z34.00 [id number] Gestation period, 14 weeks 13174721 Z3A.14 [id number] MD Mina Rosenberg [address],[place] [address] 01/24/2025 14:01:52 01/24/2025 15:13:06 Ultrasound scan - obstetric 909659539 Z36.3 [id number] [facility] [address],[place] [address] 01/24/2025 14:03:24 01/24/2025 15:52:31 Gestation period, 18 weeks 44634822 Z3A.18 [id number] Fritz Joya MD [facility] [address],[place] [address] 02/23/2025 13:48:48 02/23/2025 14:31:51 ultrasound scan abnormal 401432504 O35.EXX0 O35.03X0 Z03.74 Z3A.23 [id number] [facility] [address],[place] [address] 02/23/2025 13:49:19 02/25/2025 23:25:37 Gestation period, 23 weeks 15488176 Z3A.23 [id number] Fritz Joya MD [facility] [address] 1 03/23/2025 15:35:06 03/23/2025 16:17:39 Follow-up status [id number] O35.EXX0 Z03.74 Z3A.27 [id number] Jennifer Gasca [facility] [address],[place] [address] 03/23/2025 15:35:38 03/23/2025 16:39:34 Gestation period, 27 weeks 98923386 Z3A.27 [id number] Jennifer Gasca [facility] [address],[place] [address] 1 04/06/2025 15:44:14 04/06/2025 16:50:29 Gestation period, 29 weeks 87397201 Z3A.29 [id number] Fritz Joya MD [facility] [address],[place] [address] 1 04/20/2025 15:28:07 04/20/2025 16:19:48 Obesity 790836128 O99.210 O35.EXX0 Z3A.31 [id number] Jennifer Gasca [facility] [address],[place] [address] 1 04/20/2025 15:28:48 04/20/2025 16:30:11 Gestation period, 31 weeks 05261817 Z3A.31 [id number] [facility] [address],[place] [address] 1 05/02/2025 13:48:54 05/02/2025 14:55:32 Blood pressure above reference range 39405121 R03.0 [id number] await labsif duarte not relieved by tylenol to seaforth for evaluation [id number] [facility] [address] [address] 05/04/2025 14:43:03 05/04/2025 15:11:24 Gestation period, 33 weeks 16360447 Z3A.33 [id number] Jennifer Gasca CNM [facility] [address],[place] [address] 05/04/2025 16:51:33 05/04/2025 16:57:23 Hypertension AND/OR vomiting complicating childbirth AND/OR puerperium 632125490 O13.3 [id number] Fritz Joya MD [facility] [address],[place] [address] 05/09/2025 11:05:31 05/09/2025 12:09:39 -induced hypertension 01831768 O13.3 Z3A.33 [id number] Jennifer Gasca CNM [facility] [address],[place] [address] 05/09/2025 11:07:25 05/09/2025 12:46:38 Hypertension AND/OR vomiting complicating childbirth AND/OR puerperium 606536923 O13.3 [id number] Jennifer Gasca CNM [facility] [address],[place] [address] 05/09/2025 11:07:44 05/09/2025 12:57:32 Gestation period, 33 weeks 48260058 Z3A.33 [id number] Health Concerns Section Related Observation LastModified by Organization Detai ls LastModified Time None Recorded Concern Status LastModified by Organization Details LastModified Time None Recorded Advance Directives Directive N: Payers Insurance Date Sequence Insurance Name Policy Number Policy Cortez Covered Member ID Cortez Member ID Guarantor Name 05/15/2025 1 [facility] [id number] Saundra Antonio [id number] Sofia Antonio Notes Date Note Type Note Provider Name and Address Organization Details Recorded Time 05/09/2025 text/html Generic HPI TemplateReported by Patient Jennifer Gasca CNM [address], [place], [address], [facility] 05/09/2025 12:57:09 OBGyn Episode Ob Episode Information Episode Created Date Number of Fetuses Patient Bloodtype Patient rh Status Prepregnancy Weight lbs Domestic Partner Domestic Partner Phone Father Name Security System Engineer Status 12/28/19 25 1 A Positive [address] [employer] OPEN Fetus Data First Name Last Name Admitted to NICU Weight (g) Sex Living Outcome Pediatric Complications Fetus ID Race Codes Race Delivery Type [id number] Problems Problem Notes marijuana- rec cessationsche dule weekly testing at 37wks Problem Name Start Date End Date Resolution Snomed Code Not e Attention deficit hyperactivity disorder, combined type 12/29/2024 [id number] Hypertension AND/OR vomiting complicating childbirth AND/OR puerperium 05/04/2025 336412401 weekly testingo ff work History of asthma 12/29/2024 808489374 i nhaler Obesity 12/29/2024 291358798 BMI 36 bA SA dailyweekly testing @ 37wks Mixed anxiety and depressive disorder 12/29/2024 557437140 duloxeti nelexapro Dakota Calculation Initial Dakota Date Initial Exam Date Initial Exam Provider Initial Ultrasound Date Last Menstrual Period Date Ultra Sound Weeks Gestation 06/22/2025 11/13/2024 [email or web address] 11/13/2024 09/15/2024 8 Eighteen To Twenty Week Dakota Update Ultra Sound Date Fundal Height At Umbil Quickening Date Ultra Sound Latest Weeks Gestation Final Dakota Confirmed By Final Dakota Confirmed Date Final Dakota Date Ultra Sound Latest Days Gestation 0 06/22/20 25 0 Pre- Flowsheet Flowsheet Date 12/27/2024 Madrid Score Blood Edema Fundus Height Fundus Units Glucose Ketones Leukocytes Nitrite Labor Signs Protein Cervic Dilation Cervic Effacement Cervic Station neg none none neg Type Weight in lbs Pre/Post Dialysis Refused Weight 219.594934001262 BP Diastolic BP Location Tested BP Systolic BP Type 80 116 Fetus Heart Rate Present Fetus Movement A No Comments reviewed pt history, first p regnancy, hx mood disorder and doing well on medications, hx asthma and has inhaler, rec daily bASA, education and precautions, begin routine carereviewed US Flowsheet Date 01/24/2025 Madrid Score Blood Edema Fundus Height Fundus Units Glucose Ketones Leukocytes Nitrite Labor Signs Protein Cervic Dilation Cervic Effacement Cervic Station Type Weight in lbs Pre/Post Dialysis Refused BP Diastolic BP Location Tested BP Systolic BP Type Fetus Heart Rate Present Fetus Movement Comments Flowsheet Date 01/24/2025 Madrid Score Blood Edema Fundus Height Fundus Units Glucose Ketones Leukocytes Nitrite Labor Signs Protein Cervic Dilation Cervic Effacement Cervic Station Type Weight in lbs Pre/Post Dialysis Refused Weight 221.850656524427 BP Diastolic BP Location Tested BP Systolic BP Type 79 L arm 125 sitting Fetus Heart Rate Present Fetus Movement A Yes Comments reviewed anatomy, 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 unilat eral right, rt pyelectasis, f/u 4weeks efw 18%, precautions and education f/u 4weeks rpt us Flowsheet Date 02/23/2025 Madrid Score Blood Edema Fundus Height Fundus Units Glucose Ketones Leukocytes Nitrite Labor Signs Protein Cervic Dilation Cervic Effacement Cervic Station Type Weight in lbs Pre/Post Dialysis Refused BP Diastolic BP Location Tested BP Systolic BP Type Fetus Heart Rate Present Fetus Movement Comments Flowsheet Date 02/23/2025 Madrid Score Blood Edema Fundus Height Fundus Units Glucose Ketones Leukocytes Nitrite Labor Signs Protein Cervic Dilation Cervic Effacement Cervic Station Type Weight in lbs Pre/Post Dialysis Refused 226.855621239274 BP Diastolic BP Location Tested BP Systolic BP Type 85 L arm 133 sitting Fetus Heart Rate Present Fetus Movement A Yes Comments pyelectasis preesent, maxillofacial prosthetics dentist un ilateral smaller in size, +FM doing well, precautions and education f/u 4 weeks rpt us and gct Flowsheet Date 03/23/2025 Madrid Score Blood Edema Fundus Height Fundus Units Glucose Ketones Leukocytes Nitrite Labor Signs Protein Cervic Dilation Cervic Effacement Cervic Station Type Weight in lbs Pre/Post Dialysis Refused BP Diastolic BP Location Tested BP Systolic BP Type Fetus Heart Rate Present Fetus Movement Comments Flowsheet Date 03/23/2025 Madrid Score Blood Edema Fundus Height Fundus Units Glucose Ketones Leukocytes Nitrite Labor Signs Protein Cervic Dilation Cervic Effacement Cervic Station Type Weight in lbs Pre/Post Dialysis Refused 233.926232956224 BP Diastolic BP Location Tested BP Systolic BP Type 87 L arm 135 sitting Fetus Heart Rate Present Fetus Movement A Yes Comments reviewed US, maxillofacial prosthetics dentist resolved, m ild pyelectasis resolved, efw 20 % +FM, plan maternity support belt, education and precautions disc tdap f/u 2 weeks Flowsheet Date 04/06/2025 Madrid Score Blood Edema Fundus Height Fundus Units Glucose Ketones Leukocytes Nitrite Labor Signs Protein Cervic Dilation Cervic Effacement Cervic Station Type Weight in lbs Pre/Post Dialysis Refused Weight 237.0920448475 BP Diastolic BP Location Tested BP Systolic BP Type 84 L arm 129 sitting Fetus Heart Rate Present Fetus Movement A Yes Comments +FM, education and precautio ns, discussed rsv plan at 32 weeks, f/u 2 weeks Flowsheet Date 04/20/2025 Madrid Score Blood Edema Fundus Height Fundus Units Glucose Ketones Leukocytes Nitrite Labor Signs Protein Cervic Dilation Cervic Effacement Cervic Station Type Weight in lbs Pre/Post Dialysis Refused BP Diastolic BP Location Tested BP Systolic BP Type Fetus Heart Rate Present Fetus Movement Comments Flowsheet Date 04/20/2025 Madrid Score Blood Edema Fundus Height Fundus Units Glucose Ketones Leukocytes Nitrite Labor Signs Protein Cervic Dilation Cervic Effacement Cervic Station Type Weight in lbs Pre/Post Dialysis Refused Weight 241.947085983545 BP Diastolic BP Location Tested BP Systolic BP Type 84 L arm 128 sitting Fetus Heart Rate Present Fetus Movement A Yes Comments pyelectasis resolved efw 19% doing well +FM, precautions and education rx for rsv flu and tdap given f/u 2 weeks Flowsheet Date 05/02/2025 Madrid Score Blood Edema Fundus Height Fundus Units Glucose Ketones Leukocytes Nitrite Labor Signs Protein Cervic Dilation Cervic Effacement Cervic Station Type Weight in lbs Pre/Post Dialysis Refused 247.192100528987 BP Diastolic BP Location Tested BP Systolic BP Type 93 L arm 145 sitting Fetus Heart Rate Present Fetus Movement A Yes Comments feeling heart race at work, bp at work elevated, denies current duarte, visual changes, sob, off work until labs, pc ratio and labs today, has f/u on wednesday precautions and education reviewed Flowsheet Date 05/04/2025 Madrid Score Blood Edema Fundus Height Fundus Units Glucose Ketones Leukocytes Nitrite Labor Signs Protein Cervic Dilation Cervic Effacement Cervic Station Type Weight in lbs Pre/Post Dialysis Refused Weight 249.771829302065 BP Diastolic BP Location Tested BP Systolic BP Type 93 L arm 146 sitting Fetus Heart Rate Present Fetus Movement A Yes Comments headache resolves with eithe r tyleol or excedrin tension Gestational HTN diagnosis, PIH precautions reviewed nst weekly and will begin testing weekly discussed 37 week IOL all education and precautions reviewed f/u one week Flowsheet Date 05/04/2025 Madrid Score Blood Edema Fundus Height Fundus Units Glucose Ketones Leukocytes Nitrite Labor Signs Protein Cervic Dilation Cervic Effacement Cervic Station Type Weight in lbs Pre/Post Dialysis Refused BP Diastolic BP Location Tested BP Systolic BP Type Fetus Heart Rate Present Fetus Movement Comments Flowsheet Date 05/09/2025 Madrid Score Blood Edema Fundus Height Fundus Units Glucose Ketones Leukocytes Nitrite Labor Signs Protein Cervic Dilation Cervic Effacement Cervic Station Type Weight in lbs Pre/Post Dialysis Refused BP Diastolic BP Location Tested BP Systolic BP Type Fetus Heart Rate Present Fetus Movement Comments Flowsheet Date 05/09/2025 Madrid Score Blood Edema Fundus Height Fundus Units Glucose Ketones Leukocytes Nitrite Labor Signs Protein Cervic Dilation Cervic Effacement Cervic Station Type Weight in lbs Pre/Post Dialysis Refused BP Diastolic BP Location Tested BP Systolic BP Type Fetus Heart Rate Present Fetus Movement Comments Flowsheet Date 05/09/2025 Madrid Score Blood Edema Fundus Height Fundus Units Glucose Ketones Leukocytes Nitrite Labor Signs Protein Cervic Dilation Cervic Effacement Cervic Station Type Weight in lbs Pre/Post Dialysis Refused Weight 247.608387330064 BP Diastolic BP Location Tested BP Systolic BP Type 91 L arm 140 sitting Fetus Heart Rate Present Fetus Movement A Yes Comments +FM plan labs today, precaut ions and education disc between 37-38 weeks IOL, call for preadmit f/u on week bpp 9/10 Flowsheet Date 05/18/2025 Madrid Score Blood Edema Fundus Height Fundus Units Glucose Ketones Leukocytes Nitrite Labor Signs Protein Cervic Dilation Cervic Effacement Cervic Station Type Weight in lbs Pre/Post Dialysis Refused BP Diastolic BP Location Tested BP Systolic BP Type Fetus Heart Rate Present Fetus Movement Comments Flowsheet Date 05/18/2025 Madrid Score Blood Edema Fundus Height Fundus Units Glucose Ketones Leukocytes Nitrite Labor Signs Protein Cervic Dilation Cervic Effacement Cervic Station Type Weight in lbs Pre/Post Dialysis Refused BP Diastolic BP Location Tested BP Systolic BP Type Fetus Heart Rate Present Fetus Movement Comments Flowsheet Date 05/18/2025 Madrid Score Blood Edema Fundus Height Fundus Units Glucose Ketones Leukocytes Nitrite Labor Signs Protein Cervic Dilation Cervic Effacement Cervic Station Type Weight in lbs Pre/Post Dialysis Refused BP Diastolic BP Location Tested BP Systolic BP Type Fetus Heart Rate Present Fetus Movement Comments Menstrual History Last Menstrual Date Menses Monthly On Bcp Conception Prior Menses Frequency Hcg Plus Date Menarche Onset Age 0209/15/2024 Delivery Information Delivery Date Delivery Type Labor Anesthesia Weeks Gestation Incision Type Labor Labor Length Hrs Delivered By Post Complications Tubal Sterilization Discharge Date Comments Discharge Information Feeding Method Contraceptive Method Maternal HG B and HCT Levels
[2025-05-18 12:25] LABS: Alanine Aminotransferase 26 U/L (6-35); Albumin Level 3.4 g/dL (3.5-5.1); Alkaline Phosphatase 135 U/L (38-126); Anion Gap 8 mmol/L (4-12); Aspartate Amino Transferase 25 U/L (14-36); Bilirubin,Total 0.3 mg/dL (0.2-1.3); Blood Urea Nitrogen 7 mg/dL (7-17); Calcium 9.2 mg/dL (8.4-10.2); Carbon Dioxide 21 mmol/L (22-30); Chloride 107 mmol/L (98-107); Estimated Glomerular Filt Rate > 60; Glucose 89 mg/dL (65-110); Potassium 4.0 mmol/L (3.4-5.0); Sodium 136 mmol/L (137-145); Total Protein 6.7 g/dL (6.3-8.2); Uric Acid 8.1 mg/dL (2.5-7.5)
[2025-05-18 12:31] LABS: Add Urine Microscopic? YES; Appearance Urine Cloudy (Clear); Band Neutrophils Percent 4 % (0-6); Glucose Urine UA Negative (Negative); Leukocyte Esterase Ur 1+ LEU/UL (Negative); Need Manual Microscopic Reviewed; Neutrophils Absolute Manual 9.43 K/mm3 (1.3-6.7); Neutrophils Percent Manual 78 % (46-73); Nitrate Urine Negative (Negative); Specific Grav Ur 1.027 (1.001-1.035); Total Cells Counted 100
[2025-05-18 12:32] LABS: Basophils Absolute Manual 0.11 K/mm3 (0.0-0.1); Basophils Percent Manual 1 % (0-1); Eosinophils Absolute Manual 0.11 K/mm3 (0.02-0.50); Eosinophils Percent Manual 1 % (0-4); Lymphocytes Absolute Manual 1.26 K/mm3 (1.1-4.5); Lymphocytes Percent Manual 11 % (18-44); Monocytes Absolute Manual 0.57 K/mm3 (0.1-0.90); Monocytes Percent Manual 5 % (3-9)
[2025-05-18 12:33] LABS: Schistocytes None Seen
[2025-05-18 13:13] LABS: Total Protein Urine Random 8 mg/dL
[2025-05-18 13:35] LABS: Ur Ttl Prot Creatinine Ratio 0.02 mg/mg (0-0.20)
[2025-05-18 13:39] VITALS: BMI 43.4
[2025-05-18 13:53] VITALS: BP 142/89; PULSE 92; PULSE 98; RESP 16; TEMP 36.7
== END 2025-05-18 13:55 | disposition home or self-care (01) ==
LOC: ANHOBOP 11:27 → ANHOBPP 05-23 06:44
PROVIDERS: Visit Provider Advanced Practice Midwife
DX: O13.9 Gestational [pregnancy-induced] hypertension without significant proteinuria, unspecified trimester (principal); Z3A.00 Weeks of gestation of pregnancy not specified
CPT/HCPCS: 36415; 59025; 76819; 80053; 81001; 82570; 84156; 84550; 85025; 85055; 99199

== ENCOUNTER 2025-05-19 12:22 | Outpatient (CLI) | payer BC, SELFPAY ==
[2025-05-19] VITALS (49 sets, daily range): BP systolic 128–154; BP diastolic 68–107; PULSE 88–113; O2SAT 93–99; BMI 41.6
--- NOTE | ~2025-05-19 | US_ITS ---
EXAMINATION: US OB BPP wo non-stress, 05/19/2025 16:05 CDT HISTORY: Non-reactive NST; Hypertension in Comparison: None Technique: Edouard-scale and color Doppler images were obtained. Findings: There is a single live intrauterine identified in longitudinal lie and vertex presentation, heart rate 143. The placenta is located posteriorly BPP 8/8. IMPRESSION: Single live intrauterine detailed above Reviewed, dictated and finalized at location P.
--- OUTSIDE RECORDS SUMMARY | 2025-05-19 12:30 | XMS_ITS | Clinical Summary ---
Author Organization [facility] [employer] Address [address] [place] [address] Care Team Providers Care Decision Science Analyst Name Role Phone Unavailable Primary Care Provider Unavailabl e Source Comments [facility],non-owned Affiliates and Associated Physician Practices is amultiple site organization consisting of ambulatory clinics and hospital sitesin [place], [place], [place] and [place]. This disclosure is being madepursuant to the Care Everywhere program and may not contain all information available regarding this patient. Last updated 18.[facility] [employer] Allergies Active Allergy Reactions Criticality Noted Date Comments Fish Allergy Angioedema 02/09/2011 Food Angioedema 02/09/2011 beans Soy Angioedema 02/09/2011 Medications * Be aware that medications may not be up to date on this document. Alwaysverify current medications with the patient. fluticasone hfa 44 (FLOVENT HFA) 44 MCG/ACT inhalerIndicati ons:Asthma (HCC) Inhale 2 Puffs by mouth 2 times daily. Only one additional refill until follow up appointment on 04/25/14. 1 Inhaler 5 4 Active fluticasone propionate (FLONASE) 50 MCG/ACT nasal spray [place] 1 [place] into each nostril once daily. 1 Bottle 11 4 Active Additional Information Patient taking differently:1 spray Each NostrilAT BEDTIME, Reported on 09/12/2018 albuterol HFA (PROVENTIL;VENT DANIEL;PROAIR) 108 (90 BASE) MCG/ACT inhaler Inhale 2 Puffs by mouth every 6 hours as needed. 1 Inhaler 3 4 Active montelukast (SINGULAIR) 10 MG tablet Take 10 mg by mouth at bedtime Active busPIRone (BUSPAR) 15 MG tablet Take 15 mg by mouth 2 times daily Active aluminum-magnes ium-simethicone (MAALOX;MYLANTA ) 200-200-20 MG/5ML suspension Take 15 mL by mouth every 6 hours as needed for Heartburn 355 mL 2 9 Active calcium carbonate (TUMS) 500 MG chew tablet Take 2 tablets by mouth every 2 hours as needed for Heartburn 30 tablet 2 9 Active hydrOXYzine hcl (ATARAX) 10 MG/5ML solution Take 10 mL by mouth every 6 hours as needed (anxiety) 100 mL 9 Active ondansetron, disintegrating, (ZOFRAN ODT) 4 MG tablet Take 1 tablet by mouth every 8 hours as needed for Nausea/Vomiting Allow tablet to dissolve on the tongue 10 tablet 9 Active esomeprazole (NEXIUM) 20 MG capsule Take 1 capsule by mouth 2 times daily,before breakfast and supper 60 capsule 2 9 Active acetaminophen (TYLENOL) 160 MG/5ML suspension Take 20 mL by mouth every 4 hours as needed for Pain 355 mL 2 9 Active naproxen sodium (ALEVE) 220 MG tablet Take 1 tablet by mouth 2 times daily 20 tablet 9 Active Active Problems Problem Noted Date Diagnosed Date Epigastric pain 09/12/2018 Assessment & Plan (09/14/2018 11:57 AM LONGWALL FOREMAN): Assessment: 18 yo female with history of asthma and allergic rhinitis who presents with epigastric pain that radiates mid-sternally. Also with concerns of throat pain, myalgias, and fatigue. She had associated NBNB emesis, which has resolved, normal stools. Given location and several risk factors (NSAID use, stress, family history) peptic ulcer disease is possible. She has had a cardiac workup which was reported as negative, making that less likely. Anxiety, given recent stressors in her life, also remains on the differential. May also be viral illness given generalized constellation of symptoms, such as EBV. She requires admission for supportive care and further evaluation. Plan: - mIVF with D5 1/2NS 20 KCl at 125 ml/hr - Regular diet - Maalox, Zofran prn - IV Nexium 20 mg BID - Vitals q8h - I/Os - Continue home medications: Flovent, Flonase, Singulair Assessment & Plan (09/14/2018 11:25 AM LONGWALL FOREMAN): Assessment: 18 yo female with history of asthma and allergic rhinitis who presents with epigastric pain that radiates mid-sternally. Also with concerns of throat pain, myalgias, and fatigue. She had associated NBNB emesis, which has resolved, normal stools. Given location and several risk factors (NSAID use, stress, family history) peptic ulcer disease is possible. She has had a cardiac workup which was reported as negative, making that less likely. Anxiety, given recent stressors in her life, also remains on the differential. May also be viral illness given generalized constellation of symptoms, such as EBV. She requires admission for supportive care and further evaluation. Plan: - mIVF with D5 1/2NS 20 KCl at 125 ml/hr - Regular diet - Maalox, Zofran prn - IV Nexium 20 mg BID - Vitals q8h - I/Os - Continue home medications: Flovent, Flonase, Singulair Assessment & Plan (09/13/2018 1:57 PM LONGWALL FOREMAN): Assessment: 18 yo female with history of asthma and allergic rhinitis who presents with epigastric pain that radiates mid-sternally. Also with concerns of throat pain, myalgias, and fatigue. She had associated NBNB emesis, which has resolved, normal stools. Given location and several risk factors (NSAID use, stress, family history) peptic ulcer disease is possible. She has had a cardiac workup which was reported as negative, making that less likely. Anxiety, given recent stressors in her life, also remains on the differential. May also be viral illness given generalized constellation of symptoms, such as EBV. She requires admission for supportive care and further evaluation. Plan: - mIVF with D5 1/2NS 20 KCl at 125 ml/hr - Regular diet - Maalox, Zofran prn - IV Pepcid 20 mg BID - Vitals q8h - I/Os - Continue home medications: Flovent, Flonase, Singulair - Will work to obtain OSH records Assessment & Plan (09/12/2018 11:47 PM LONGWALL FOREMAN): Assessment: 18 yo female with history of asthma and allergic rhinitis who presents with epigastric pain that radiates mid-sternally. She has associated NBNB emesis (though does endorse desire to eat) with no change in stool. Given location and several risk factors (NSAID use, stress, family history) peptic ulcer disease remains most likely cause. She has had a cardiac workup which was negative, making that less likely. Anxiety, given recent stressors in her life, also remains on the differential. She requires admission for supportive care and further evaluation. Plan: - Admit to General Pediatrics, Dr. Shukla - mIVF with D5 1/2NS 20 KCl at 125 ml/hr - Regular diet - Maalox, Zofran prn - IV Pepcid 20 mg BID - Vitals q8h - I/Os - Continue home medications: Flovent, Flonase, Singulair - Consider psychology consult due to recent stressors Sexually active child 09/12/2018 Assessment & Plan (09/14/2018 11:58 AM LONGWALL FOREMAN): Assessment: Endorses being sexually active. Uses protection but has never been tested. PID unlikely cause of pain but will test screen. Urine hCG negative, urine GC/Chlamydia negative. Plan: - adolescent counselor on safe sex Assessment & Plan (09/13/2018 1:57 PM LONGWALL FOREMAN): Assessment: Endorses being sexually active. Uses protection but has never been tested. PID unlikely cause of pain but will test screen. Urine hCG negative Plan: - Urine GC+Chlamydia Assessment & Plan (09/12/2018 11:47 PM LONGWALL FOREMAN): Assessment: Endorses being sexually active. Uses protection but has never been tested. PID unlikely cause of pain but will test screen. Plan: - Urine GC+Chlamydia - Urine Hcg Asthma 02/09/2011 Allergic rhinitis 02/09/2011 Overview (02/09/2011): IgE positive to mold, tree, grass, ragweed, pollen and mouse dander Allergic conjunctivitis 02/09/2011 Food allergy 02/09/2011 Overview (02/09/2011): Soy, beans, fish Chest pain in patient younger than 17 years Resolved Problems Problem Noted Date Diagnosed Date Resolved Date Pharyngitis 09/13/2018 09/27/2018 Assessment & Plan (09/14/2018 11:58 AM LONGWALL FOREMAN): Assessment: Sofia with complaints of upset stomach, pharyngitis, malaise, and fatigue which causes concern for possible EBV infection. Also could consider GAS, though pharyngeal exam is unrevealing and negative at OSH (previous tonsillectomy). Monospot negative here. Plan: - IV fluid for hydration - toradol Q6hrs PRN for throat and chest pain - could consider EBV PCR - consider upper GI study if significant dysphagia remains Assessment & Plan (09/14/2018 11:26 AM LONGWALL FOREMAN): Assessment: Sofia with complaints of upset stomach, pharyngitis, malaise, and fatigue which causes concern for possible EBV infection. Also could consider GAS, though pharyngeal exam is unrevealing (previous tonsillectomy). Monospot negative here. Plan: - IV fluid for hydration - toradol Q6hrs PRN for throat and chest pain - could consider EBV PCR - consider GAS swab Assessment & Plan (09/13/2018 1:57 PM LONGWALL FOREMAN): Assessment: Sofia with complaints of upset stomach, pharyngitis, malaise, and fatigue which causes concern for possible EBV infection. Also could consider GAS, though pharyngeal exam is unrevealing (previous tonsillectomy). Monospot negative here. Plan: - IV fluid for hydration - toradol Q6hrs PRN for throat and chest pain - could consider EBV PCR - consider GAS swab Immunizations Immunization Administration Dates Next Due INFLUENZA VACCINE, TRIV. (AF LURIA, FLUZONE TRIVALENT; 6MO+) (IIV3) 04/25/2014 Family History Medical History Relation Name Comments Asthma Father Asthma Mother Other - Gastrointestinal Mother IBS , GERD Relation Name Status Comments Father Mother Social History Tobacco Use Types Packs/Day Years Used Date Smoking Tobacco: Never Smokeless Tobacco: Never Alcohol Use Standard Drinks/Week Comments No 0 (1 standard drink = 0.6 oz pur e alcohol) Comments Unknown Sex and Gender Information Value Date Recorded Sex Assigned at Not on file Legal Sex Female 5:43 AM LONGWALL FOREMAN Gender Identity Not on file Sexual Orientation Not on file Last Filed Vital Signs Vital Sign Reading Time Taken Comments Blood Pressure 104/58 09/14/2018 8:37 AM LONGWALL FOREMAN Pulse 112 09/14/2018 12:52 PM LONGWALL FOREMAN Temperature 37.1 C (98.7 F) 09/14/2018 8:37 AM LONGWALL FOREMAN Respiratory Rate 28 09/14/2018 12:5 2 PM LONGWALL FOREMAN Oxygen Saturation 100% 09/13/2018 4:10 PM LONGWALL FOREMAN Inhaled Oxygen Concentration - - Weight 66.1 kg (145 lb 11.6 oz) 09/12/2018 7:34 PM LONGWALL FOREMAN Height 164.5 cm (5' 4.76) 09/12/2018 7:34 PM CS T Body Mass Index 24.43 09/12/2018 7:34 PM LONGWALL FOREMAN Plan of Treatment Health Maintenance Due Date Last Done Comments HIV SCREENING 2017 HPV VACCINE (1 - 3-dose series) 2017 MENINGOCOCCAL (Group B) VACC INE SHARED DECISION-MAKING (1 of 2 - Standard) 2018 CHLAMYDIA/GONORRHEA SCREENING 09/13/2019 09/13/2018 HEPATITIS C SCREENING 01/09/2020 DTAP/TDAP/TD VACCINES (1 - Tdap) 2021 HEPATITIS B VACCINE (1 of 3 - 19+ 3-dose series) 2021 DEPRESSION SCREENING 08/02/2024 COVID-19 VACCINE (1 - 2023-2 5 season) 2025 INFLUENZA VACCINE (#1) 2025 04/25/2014 ZOSTER VACCINE (1 of 2) 01/14/2052 HIB VACCINE Aged Out No longer eligi ble based on patient's age to complete this topic MENINGOCOCCAL GROUPS A/C/Y/W VACCINE Aged Out No longer eligible b ased on patient's age to complete this topic PNEUMOCOCCAL VACCINE Aged Out No long er eligible based on patient's age to complete this topic Procedures Procedure Name Priority Date/Time Associated Diagnosis Comments CHLAMYDIA + GC AMPLIFIED PROBE Routine 09/13/2018 12:01 AM LONGWALL FOREMAN from Last 3 Months or Most Recently Relevant to Health Maintenance Results * CHLAMYDIA + GC AMPLIFIED PROBE (09/13/2018 12:01 AM LONGWALL FOREMAN) Chlamydia Amplified Probe Negative Negative 09/13/2018 12:51 PM LONGWALL FOREMAN [facility] GC Amplified Probe Negative Negative 09/13/2018 12:51 PM LONGWALL FOREMAN [facility] Microbiology URINE / Unknown Collection / Unknown 09/13/2018 12:01 AM LONGWALL FOREMAN 09/13/2018 12:09 AM LONGWALL FOREMAN Narrative [facility] - 09/13/2018 12:51 PM LONGWALL FOREMAN Results based on detection/no detection of ribosomal RNA by amplified method. Alesia Rahman DO LAB - MICROBIOLOGY ORDERABL ES Final Result [facility] [address] [place], [place] [address], [facility] [phone] from Last 3 Months or Most Recently Relevant to Health Maintenance Insurance ANTH Member Subscriber Plan / Payer (Ef fective for All Dates) Name:Sofia Antonio Member ID:Not on file Relation to Subscriber:Child Name:CARLEEN BARR Subscriber ID:[id number] Date of :1981 (Home) Address: [address] [place] [id number] Payer ID:[id number] (NAIC) Type:O Address: [facility] [id number] [place] [phone] ANTH Advance Directives * Full Code (Latest Code Status on File) Date Activated Date Inactivated Comments 09/12/2018 10:53 PM 09/14/2018 4:53 PM
--- OUTSIDE RECORDS SUMMARY | 2025-05-19 12:30 | XMS_ITS | Clinical Summary ---
Author Organization [facility] Address [address] [place] [address] Care Team Providers Care Linseed Oil Temperer Name Role Phone Lisette Guido DNP Primary [...] 90 tablet 3 5 Active PNV with [id number] 27 mg iron- 1 mg tabletIndicatio ns: [...] (10/19/2024 9:02 AM CDT): +UPT Refer to SEWAGE SCREEN OPERATOR Class 2 obesity without seri ous comorbidity [...] 36.9 C (98.4 F) 08/30/2024 11:47 AM INTERNATIONAL BANK MANAGER Respiratory Rate 18 10/19/2024 8:08 AM CDT [...] HPV Vaccines Completed 03/30/2016, 09/30, 06/07/2014 Insurance [facility] [employer] Member Subscriber Plan / Payer (Ef fective 2015-Present) Name:MontesMaxi almonteylar Member ID:[id number] Relation to Subscriber:Child Name:CARLEEN MONTES Subscriber ID:[id number] Date of :1981 Address: [address] [place] [id number] Payer ID:[id number] (NAIC) Type: JENNIFER Address: [facility] [id number] [place] [id number] Advance Directives For more information, please contact: [phone] * Full Code (Latest Code Status on File) Date Activated Date Inactivated Comments 12/06/2023 8:27 PM 12/07/2023 5:20 PM Care Teams Linseed Oil Temperer Relationship Specialty Start Date End Date Lisette Guido DNP [address] [facility] [address] [address] PCP - General Family Medicine 10/19/24
--- NOTE | 2025-05-19 12:55 | PC.NURSE ---
Dr. Martinez informed of this 35 1/7 wk G1 pt of Nixon Gasca CNM here with c/o blurred vision and elevated BP's of 150's /90's at home. Pt was sent to L&D yesterday for elevated BP's. Reviewed labs from then and informed 1st BP for me was 154/98. Pt also has 1+pitting edema in ankles. FHT's with moderate variability; not reactive yet. Pt is having some contractions that she rates as a 2 out of 10. Order received to repeat labs.
[2025-05-19 13:21] LABS: Hematocrit 37.6 % (37.0-47.0); Hemoglobin 12.7 g/dL (12.0-15.0); Immature Granulocyte Percent A 1.4 % (0-0.5); Lymphocytes Absolute Auto 1.42 K/mm3 (0.9-3.2); Mean Corpuscular HGB Conc 33.8 g/dl (32-36); Mean Corpuscular Hemoglobin 30.1 pg (26-34); Mean Corpuscular Volume 89.1 fl (80-100); Nucleated Red Blood Cells Absolute Auto 0.000 K/mm3 (0.0-0.012); Nucleated Red Blood Cells Perc 0.0 % (0.0-0.2); Platelet Count Result 148 k/mm3 (150-375); Red Blood Count 4.22 M/mm3 (4.2-5.4); White Blood Count 12.2 K/mm3 (4.5-10.0)
[2025-05-19 13:40] LABS: Schistocytes None Seen
[2025-05-19 13:41] LABS: Add Urine Microscopic? YES; Appearance Urine Cloudy (Clear); Glucose Urine UA Negative (Negative); Leukocyte Esterase Ur 1+ LEU/UL (Negative); Need Manual Microscopic Reviewed; Nitrate Urine Negative (Negative); Non Pathogenic Casts 0-2; Specific Grav Ur 1.013 (1.001-1.035)
[2025-05-19 13:44] LABS: Alanine Aminotransferase 25 U/L (6-35); Albumin Level 3.2 g/dL (3.5-5.1); Alkaline Phosphatase 150 U/L (38-126); Anion Gap 6 mmol/L (4-12); Aspartate Amino Transferase 26 U/L (14-36); Bilirubin,Total 0.3 mg/dL (0.2-1.3); Blood Urea Nitrogen 6 mg/dL (7-17); Calcium 9.0 mg/dL (8.4-10.2); Carbon Dioxide 20 mmol/L (22-30); Chloride 107 mmol/L (98-107); Estimated CRCL calculation 139 ml/min; Estimated Glomerular Filt Rate > 60; Glucose 73 mg/dL (65-110); Potassium 3.8 mmol/L (3.4-5.0); Sodium 133 mmol/L (137-145); Total Protein 6.4 g/dL (6.3-8.2); Uric Acid 8.3 mg/dL (2.5-7.5)
[2025-05-19 13:46] LABS: Total Protein Urine Random 22 mg/dL; Ur Ttl Prot Creatinine Ratio 0.20 mg/mg (0-0.20)
--- NOTE | 2025-05-19 13:52 | PC.NURSE ---
Dr. Martinez updated on BP's and lab results including platelets down to 148 today. Baby has had 15 beat accels, but not 2 in 20 mins. Pt only had a donut for breakfast this am and has ordered lunch. Order received to discharge pt to home after reactive NST obtained. Pt to complete 24 hr urine at home and return to L&D. Office will call pt on Wednesday to schedule follow-up.
--- NOTE | 2025-05-19 15:06 | PC.NURSE ---
Dr. Martinez informed NST still not reactive and a variable decel was noted. When I reviewed her tracing from yesterday, her baby wasn't reactive, but she had a BPP of 88 with an BHAVNA of 15.9 cm. Order received to repeat BPP and may discharge if 8/8.
--- NOTE | 2025-05-19 15:49 | PC.NURSE ---
Dr. Martinez informed pt's tracing just became reactive. MD would still like pt to have BPP due to the time it took for tracing to become reactive. May discharge to home if BPP 03/09.
--- NOTE | 2025-05-19 16:40 | PC.NURSE ---
PT BACK FROM ULTRASOUND. BPP RESULTS 03/09. DISCHARGE INSTRUCTIONS GIVEN TO PT VERBALLY AND PT SENT WITH SUPPLIES TO COMPLETE 24 HOUR URINE. PT DENIES QUESTIONS OR CONCERNS AND VERBALIZES UNDERSTANDING. PT LEAVES L&D AMBULATORY, NO DISTRESS NOTED.
== END 2025-05-19 16:45 | disposition home or self-care (01) ==
LOC: ANHOBOP 12:29 → ANHOBPP 16:57
PROVIDERS: Obstetrics & Gynecology; Visit Provider Advanced Practice Midwife
DX: O13.9 Gestational [pregnancy-induced] hypertension without significant proteinuria, unspecified trimester (principal); Z3A.00 Weeks of gestation of pregnancy not specified
CPT/HCPCS: 36415; 59025; 76819; 80053; 81001; 82570; 84156; 84550; 85025; 99199

== ENCOUNTER 2025-05-20 16:17 | Outpatient (NON) | payer BC, SELFPAY ==
[2025-05-20 16:32] VITALS: BMI 41.6
[2025-05-20 17:08] LABS: Total Volume 24 Hour Urine 2200 ml
[2025-05-20 17:13] LABS: Creatinine Clearance Urine 144.5 ml/min (75-125); Serum Creat 0.68; Total Protein Urine 24 Hr 484 mg/24hr (28-141); Total Protein Urine Random 22 mg/dL
== END 2025-05-20 16:18 | disposition home or self-care (01) ==
LOC: ANHOBOP 16:23
PROVIDERS: Visit Provider Obstetrics & Gynecology
DX: O13.9 Gestational [pregnancy-induced] hypertension without significant proteinuria, unspecified trimester (principal); Z3A.00 Weeks of gestation of pregnancy not specified
CPT/HCPCS: 81050; 82575; 84156

== ENCOUNTER 2025-05-25 14:40 | Outpatient (CLI) | payer BC, MEDICAID, SELFPAY ==
--- OUTSIDE RECORDS SUMMARY | 2025-05-25 14:48 | XMS_ITS | Clinical Summary ---
Author Organization [facility] Address [address] [place] [address] Care Team Providers Care Link Trainer Maintenance Man Name Role Phone Lisette Guido DNP Primary [...] 90 tablet 3 5 Active PNV with [id number] 27 mg iron- 1 mg tabletIndicatio ns: [...] (10/19/2024 9:02 AM CDT): +UPT Refer to [facility] Class 2 obesity without seri ous comorbidity [...] 36.9 C (98.4 F) 08/30/2024 11:47 AM STUDENT ADVISOR Respiratory Rate 18 10/19/2024 8:08 AM CDT [...] HPV Vaccines Completed 03/30/2016, 09/30, 06/07/[address] [facility] ACCESS Member Subscriber Plan / Payer (Ef fective 2015-Present) Name:MontesMaxi almonteylar Member ID:[id number] Relation to Subscriber:Child Name:CARLEEN MONTES Subscriber ID:[id number] Date of :1981 Address: [address] [place] [id number] Payer ID:[id number] (NAIC) Type: JENN[place]ER Address: [facility] [id number] [place] [id number] Advance Directives For more information, please contact: [phone] * Full Code (Latest Code Status on File) Date Activated Date Inactivated Comments 12/06/2023 8:27 PM 12/07/2023 5:20 PM Care Teams Link Trainer Maintenance Man Relationship Specialty Start Date End Date Lisette Guido DNP [address] [facility] [address] [address] PCP - General Family Medicine 10/19/24
--- OUTSIDE RECORDS SUMMARY | 2025-05-25 14:48 | XMS_ITS | Clinical Summary ---
Author Organization [facility] Address [address] [place] [address] Care Team Providers Care Facilities Plant Engineer Name Role Phone Unavailable Primary Care Provider Unavailabl e Source Comments [facility],non-owned Affiliates and Associated Physician Practices is amultiple site organization consisting of ambulatory clinics and hospital sitesin [place], [place], [place] and [place]. This disclosure is being madepursuant to the Care Everywhere program and may not contain all information available regarding this patient. Last updated 18.[facility] Allergies Active Allergy Reactions Criticality Noted Date [...] fluticasone propionate (FLONASE) 50 MCG/ACT nasal spray [place] 1 [place] into each nostril once daily. 1 Bottle [...] 09/12/2018 Assessment & Plan (09/14/2018 11:57 AM WEB PROJECT MANAGER): Assessment: 18 yo female with history of [...] Singulair Assessment & Plan (09/14/2018 11:25 AM WEB PROJECT MANAGER): Assessment: 18 yo female with history of [...] Singulair Assessment & Plan (09/13/2018 1:57 PM WEB PROJECT MANAGER): Assessment: 18 yo female with history of [...] records Assessment & Plan (09/12/2018 11:47 PM WEB PROJECT MANAGER): Assessment: 18 yo female with history of [...] 09/12/2018 Assessment & Plan (09/14/2018 11:58 AM WEB PROJECT MANAGER): Assessment: Endorses being sexually active. Uses protection but has never been tested. PID unlikely cause of pain but will test screen. Urine hCG negative, urine GC/Chlamydia negative. Plan: - school adjustment counselor on safe sex Assessment & Plan (09/13/2018 1:57 PM WEB PROJECT MANAGER): Assessment: Endorses being sexually active. Uses protection but has never been tested. PID unlikely cause of pain but will test screen. Urine hCG negative Plan: - Urine GC+Chlamydia Assessment & Plan (09/12/2018 11:47 PM WEB PROJECT MANAGER): Assessment: Endorses being sexually active. Uses protection [...] 09/27/2018 Assessment & Plan (09/14/2018 11:58 AM WEB PROJECT MANAGER): Assessment: Sofia with complaints of upset stomach, [...] remains Assessment & Plan (09/14/2018 11:26 AM WEB PROJECT MANAGER): Assessment: Sofia with complaints of upset stomach, pharyngitis, malaise, and fatigue which causes concern for possible EBV infection. Also could consider GAS, though pharyngeal exam is unrevealing (previous tonsillectomy). Monospot negative here. Plan: - IV fluid for hydration - toradol Q6hrs PRN for throat and chest pain - could consider EBV PCR - consider GAS swab Assessment & Plan (09/13/2018 1:57 PM WEB PROJECT MANAGER): Assessment: Sofia with complaints of upset stomach, [...] on file Legal Sex Female 5:43 AM WEB PROJECT MANAGER Gender Identity Not on file Sexual Orientation Not on file Last Filed Vital Signs Vital Sign Reading Time Taken Comments Blood Pressure 104/58 09/14/2018 8:37 AM WEB PROJECT MANAGER Pulse 112 09/14/2018 12:52 PM WEB PROJECT MANAGER Temperature 37.1 C (98.7 F) 09/14/2018 8:37 AM WEB PROJECT MANAGER Respiratory Rate 28 09/14/2018 12:5 2 PM WEB PROJECT MANAGER Oxygen Saturation 100% 09/13/2018 4:10 PM WEB PROJECT MANAGER Inhaled Oxygen Concentration - - Weight 66.1 kg (145 lb 11.6 oz) 09/12/2018 7:34 PM WEB PROJECT MANAGER Height 164.5 cm (5' 4.76) 09/12/2018 7:34 PM CS T Body Mass Index 24.43 09/12/2018 7:34 PM WEB PROJECT MANAGER Plan of Treatment Health Maintenance Due Date [...] GC AMPLIFIED PROBE Routine 09/13/2018 12:01 AM WEB PROJECT MANAGER from Last 3 Months or Most Recently Relevant to Health Maintenance Results * CHLAMYDIA + GC AMPLIFIED PROBE (09/13/2018 12:01 AM WEB PROJECT MANAGER) Chlamydia Amplified Probe Negative Negative 09/13/2018 12:51 PM WEB PROJECT MANAGER [facility] GC Amplified Probe Negative Negative 09/13/2018 12:51 PM WEB PROJECT MANAGER [facility] Microbiology URINE / Unknown Collection / Unknown 09/13/2018 12:01 AM WEB PROJECT MANAGER 09/13/2018 12:09 AM WEB PROJECT MANAGER Narrative [facility] - 09/13/2018 12:51 PM WEB PROJECT MANAGER Results based on detection/no detection of ribosomal RNA by amplified method. Alesia Rahman DO LAB - MICROBIOLOGY ORDERABL ES Final Result [facility] [address] [place], [place] [address], [facility] [phone] from Last 3 Months or Most Recently Relevant to Health Maintenance Insurance ANTH Member Subscriber Plan / Payer (Ef fective for All Dates) Name:Sofia Antonio Member ID:Not on file Relation to Subscriber:Child Name:CARLEEN BARR Subscriber ID:[id number] Date of :1981 (Home) Address: [address] [place] [address] Payer ID:[id number] (NAIC) Type:O Address: [facility] [id number] [place] [phone] ANTH Advance Directives * Full Code (Latest Code Status on File) Date Activated Date Inactivated Comments 09/12/2018 10:53 PM 09/14/2018 4:53 PM
[2025-05-25 15:01] VITALS: BP 149/95; PULSE 99
[2025-05-25 15:16] VITALS: BP 148/95; PULSE 97
[2025-05-25 15:17] LABS: Hematocrit 37.3 % (37.0-47.0); Hemoglobin 12.7 g/dL (12.0-15.0); Immature Granulocyte Percent A 1.6 % (0-0.5); Immature Platelet Fraction Pct 26.9 % (0.9-11.2); Lymphocytes Absolute Auto 1.41 K/mm3 (0.9-3.2); Mean Corpuscular HGB Conc 34.0 g/dl (32-36); Mean Corpuscular Hemoglobin 30.7 pg (26-34); Mean Corpuscular Volume 90.1 fl (80-100); Nucleated Red Blood Cells Absolute Auto 0.000 K/mm3 (0.0-0.012); Nucleated Red Blood Cells Perc 0.0 % (0.0-0.2); Platelet Count Result 147 k/mm3 (150-375); Red Blood Count 4.14 M/mm3 (4.2-5.4); White Blood Count 11.4 K/mm3 (4.5-10.0)
[2025-05-25 15:19] LABS: Add Urine Microscopic? YES; Appearance Urine Clear (Clear); Glucose Urine UA Negative (Negative); Leukocyte Esterase Ur Trace LEU/UL (Negative); Nitrate Urine Negative (Negative); Non Pathogenic Casts 0-2; Specific Grav Ur 1.019 (1.001-1.035)
[2025-05-25 15:25] LABS: Alanine Aminotransferase 38 U/L (6-35); Albumin Level 3.3 g/dL (3.5-5.1); Alkaline Phosphatase 133 U/L (38-126); Anion Gap 8 mmol/L (4-12); Aspartate Amino Transferase 30 U/L (14-36); Bilirubin,Total 0.3 mg/dL (0.2-1.3); Blood Urea Nitrogen 9 mg/dL (7-17); Calcium 9.4 mg/dL (8.4-10.2); Carbon Dioxide 21 mmol/L (22-30); Chloride 106 mmol/L (98-107); Estimated Glomerular Filt Rate > 60; Glucose 102 mg/dL (65-110); Potassium 4.1 mmol/L (3.4-5.0); Sodium 135 mmol/L (137-145); Total Protein 6.4 g/dL (6.3-8.2); Uric Acid 7.9 mg/dL (2.5-7.5)
[2025-05-25 15:31] VITALS: BP 144/91; PULSE 90
[2025-05-25 15:35] LABS: Total Protein Urine Random 108 mg/dL; Ur Ttl Prot Creatinine Ratio 0.75 mg/mg (0-0.20)
[2025-05-25 15:46] VITALS: BP 147/90; PULSE 93
[2025-05-25 15:50] LABS: Schistocytes None Seen
[2025-05-25 16:01] VITALS: BP 150/91; PULSE 95
[2025-05-25 16:25] VITALS: BP 149/95; PULSE 95; PULSE 99
--- NOTE | 2025-05-25 16:29 | PC.NURSE ---
1600- Jennifer Gasca called unit to discuss plan of care. Nixon Gasca reviewed lab results and vital signs. Orders received.
== END 2025-05-25 16:30 | disposition home or self-care (01) ==
LOC: ANHOBOP 14:46 → ANHLDR 14:51
PROVIDERS: Visit Provider Advanced Practice Midwife
DX: O13.9 Gestational [pregnancy-induced] hypertension without significant proteinuria, unspecified trimester (principal)
CPT/HCPCS: 36415; 59025; 80053; 81001; 82570; 84156; 84550; 85025; 85055; 87086; 99199

== ENCOUNTER 2025-05-29 12:51 | Inpatient (IN) | payer BC, MEDICAID, SELFPAY ==
[2025-05-29] VITALS (34 sets, daily range): BP systolic 140–160; BP diastolic 81–107; PULSE 82–104; RESP 16; TEMP 37–37.3; BMI 42.7; BMI 42.6
--- NOTE | ~2025-05-29 | US_ITS ---
EXAM/PROCEDURE: US pelvic complete HISTORY: DO AT BEDSIDE; PP hemorrhage COMPARISON: None available. TECHNIQUE: Grayscale and color Doppler. Transabdominal. Transabdominal imaging is limited by the collapsed bladder. FINDINGS: The uterus is enlarged and heterogeneous in echotexture, consistent with the state. There are dilated myometrial vessels. There are bright reflectors seen in the endometrium/endometrial cavity which likely represent air there is minimal fluid in the endometrial cavity. The bladder is collapsed with a Ortega catheter. IMPRESSION: Enlarged, heterogeneous uterus with air and minimal fluid in the endometrium/endometrial cavity, consistent with the known history. Reviewed, dictated and finalized at location A. IMPRESSION: Enlarged, heterogeneous uterus with air and minimal fluid in the endometrium/en dometrial cavity, consistent with the known history.
--- NOTE | 2025-05-29 13:16 | PC.NURSE ---
Nixon Gasca CNM informed this pt had a severe range BP taken at the [facility] office today and pt came here. Informed initial BP is 149/92. Orders received for labs; no urine to be done since she has ruled in for preeclampsia already.
[2025-05-29] MEDS: CYCLOBENZAPRINE HCL 10 MG TABLET PO (13:35)
[2025-05-29 13:38] LABS: Hematocrit 37.8 % (37.0-47.0); Hemoglobin 12.8 g/dL (12.0-15.0); Immature Granulocyte Percent A 1.7 % (0-0.5); Immature Platelet Fraction Pct 28.7 % (0.9-11.2); Lymphocytes Absolute Auto 1.55 K/mm3 (0.9-3.2); Mean Corpuscular HGB Conc 33.9 g/dl (32-36); Mean Corpuscular Hemoglobin 30.5 pg (26-34); Mean Corpuscular Volume 90.2 fl (80-100); Nucleated Red Blood Cells Absolute Auto 0.000 K/mm3 (0.0-0.012); Nucleated Red Blood Cells Perc 0.0 % (0.0-0.2); Platelet Count Result 140 k/mm3 (150-375); Red Blood Count 4.19 M/mm3 (4.2-5.4); White Blood Count 11.2 K/mm3 (4.5-10.0)
[2025-05-29 13:49] LABS: Alanine Aminotransferase 31 U/L (6-35); Albumin Level 3.2 g/dL (3.5-5.1); Alkaline Phosphatase 147 U/L (38-126); Anion Gap 8 mmol/L (4-12); Aspartate Amino Transferase 29 U/L (14-36); Bilirubin,Total 0.4 mg/dL (0.2-1.3); Blood Urea Nitrogen 9 mg/dL (7-17); Calcium 9.1 mg/dL (8.4-10.2); Carbon Dioxide 18 mmol/L (22-30); Chloride 107 mmol/L (98-107); Estimated CRCL calculation 136 ml/min; Estimated Glomerular Filt Rate > 60; Glucose 109 mg/dL (65-110); Potassium 3.9 mmol/L (3.4-5.0); Sodium 133 mmol/L (137-145); Total Protein 6.2 g/dL (6.3-8.2); Uric Acid 8.8 mg/dL (2.5-7.5)
--- NOTE | 2025-05-29 14:26 | PC.NURSE ---
Nixon Gasca CNM informed of BP's, reactive NST, and lab results. Informed it has been about 50 mins from when the Flexeril was given with no relief of headache. CNM wants SVE done and to call her back.
--- NOTE | 2025-05-29 14:32 | PC.NURSE ---
Transferred to labor room 105 per wheelchair with personal belongings and in attendance.
--- OUTSIDE RECORDS SUMMARY | 2025-05-29 14:42 | XMS_ITS | Clinical Summary ---
Author Organization [facility] Address [address] [place] [address] Care Team Providers Care Senior Web Architect Name Role Phone Unavailable Primary Care Provider Unavailabl e Source Comments [facility],non-owned Affiliates and Associated Physician Practices is amultiple site organization consisting of ambulatory clinics and hospital sitesin [place], [place], [place] and [place]. This disclosure is being madepursuant to the Care Everywhere program and may not contain all information available regarding this patient. Last updated 18.[facility] [employer] Allergies Active Allergy Reactions Criticality Noted Date [...] fluticasone propionate (FLONASE) 50 MCG/ACT nasal spray [place] 1 [place] into each nostril once daily. 1 Bottle [...] 09/12/2018 Assessment & Plan (09/14/2018 11:57 AM FUSING MACHINE TENDER): Assessment: 18 yo female with history of [...] Singulair Assessment & Plan (09/14/2018 11:25 AM FUSING MACHINE TENDER): Assessment: 18 yo female with history of [...] Singulair Assessment & Plan (09/13/2018 1:57 PM FUSING MACHINE TENDER): Assessment: 18 yo female with history of [...] records Assessment & Plan (09/12/2018 11:47 PM FUSING MACHINE TENDER): Assessment: 18 yo female with history of [...] 09/12/2018 Assessment & Plan (09/14/2018 11:58 AM FUSING MACHINE TENDER): Assessment: Endorses being sexually active. Uses protection but has never been tested. PID unlikely cause of pain but will test screen. Urine hCG negative, urine GC/Chlamydia negative. Plan: - nutrition counselor on safe sex Assessment & Plan (09/13/2018 1:57 PM FUSING MACHINE TENDER): Assessment: Endorses being sexually active. Uses protection but has never been tested. PID unlikely cause of pain but will test screen. Urine hCG negative Plan: - Urine GC+Chlamydia Assessment & Plan (09/12/2018 11:47 PM FUSING MACHINE TENDER): Assessment: Endorses being sexually active. Uses protection [...] 09/27/2018 Assessment & Plan (09/14/2018 11:58 AM FUSING MACHINE TENDER): Assessment: Sofia with complaints of upset stomach, [...] remains Assessment & Plan (09/14/2018 11:26 AM FUSING MACHINE TENDER): Assessment: Sofia with complaints of upset stomach, pharyngitis, malaise, and fatigue which causes concern for possible EBV infection. Also could consider GAS, though pharyngeal exam is unrevealing (previous tonsillectomy). Monospot negative here. Plan: - IV fluid for hydration - toradol Q6hrs PRN for throat and chest pain - could consider EBV PCR - consider GAS swab Assessment & Plan (09/13/2018 1:57 PM FUSING MACHINE TENDER): Assessment: Sofia with complaints of upset stomach, [...] on file Legal Sex Female 5:43 AM FUSING MACHINE TENDER Gender Identity Not on file Sexual Orientation Not on file Last Filed Vital Signs Vital Sign Reading Time Taken Comments Blood Pressure 104/58 09/14/2018 8:37 AM FUSING MACHINE TENDER Pulse 112 09/14/2018 12:52 PM FUSING MACHINE TENDER Temperature 37.1 C (98.7 F) 09/14/2018 8:37 AM FUSING MACHINE TENDER Respiratory Rate 28 09/14/2018 12:5 2 PM FUSING MACHINE TENDER Oxygen Saturation 100% 09/13/2018 4:10 PM FUSING MACHINE TENDER Inhaled Oxygen Concentration - - Weight 66.1 kg (145 lb 11.6 oz) 09/12/2018 7:34 PM FUSING MACHINE TENDER Height 164.5 cm (5' 4.76) 09/12/2018 7:34 PM CS T Body Mass Index 24.43 09/12/2018 7:34 PM FUSING MACHINE TENDER Plan of Treatment Health Maintenance Due Date [...] GC AMPLIFIED PROBE Routine 09/13/2018 12:01 AM FUSING MACHINE TENDER from Last 3 Months or Most Recently Relevant to Health Maintenance Results * CHLAMYDIA + GC AMPLIFIED PROBE (09/13/2018 12:01 AM FUSING MACHINE TENDER) Chlamydia Amplified Probe Negative Negative 09/13/2018 12:51 PM FUSING MACHINE TENDER [facility] GC Amplified Probe Negative Negative 09/13/2018 12:51 PM FUSING MACHINE TENDER [facility] Microbiology URINE / Unknown Collection / Unknown 09/13/2018 12:01 AM FUSING MACHINE TENDER 09/13/2018 12:09 AM FUSING MACHINE TENDER Narrative [facility] - 09/13/2018 12:51 PM FUSING MACHINE TENDER Results based on detection/no detection of ribosomal RNA by amplified method. Alesia Rahman DO LAB - MICROBIOLOGY ORDERABL ES Final Result [facility] [address] [place], [place] [address], [facility] [phone] from Last 3 Months or Most Recently Relevant to Health Maintenance Insurance ANTH Member Subscriber Plan / Payer (Ef fective for All Dates) Name:Sofia Antonio Member ID:Not on file Relation to Subscriber:Child Name:CARLEEN BARR Subscriber ID:[id number] Date of :1981 (Home) Address: [address] [place] [address] Payer ID:[id number] (NAIC) Type:O Address: [facility] [id number] [place] [phone] ANTH Advance Directives * Full Code (Latest Code Status on File) Date Activated Date Inactivated Comments 09/12/2018 10:53 PM 09/14/2018 4:53 PM
--- OUTSIDE RECORDS SUMMARY | 2025-05-29 14:42 | XMS_ITS | Clinical Summary ---
Author Organization [facility] Address [address] [place] [address] Care Team Providers Care Atm Servicer Name Role Phone Lisette Guido DNP Primary [...] 90 tablet 3 5 Active PNV with pusjozr-dfrf-MO 27 mg iron- 1 mg tabletIndicatio ns: [...] (10/19/2024 9:02 AM CDT): +UPT Refer to ARBOREAL SCIENTIST Class 2 obesity without seri ous comorbidity [...] 36.9 C (98.4 F) 08/30/2024 11:47 AM CUT FILE CLERK Respiratory Rate 18 10/19/2024 8:08 AM CDT [...] HPV Vaccines Completed 03/30/2016, 09/30, 06/07/2014 Insurance [facility] ACCESS Member Subscriber Plan / Payer (Ef fective 2015-Present) Name:MontesMaxi almonteylar Member ID:[id number] Relation to Subscriber:Child Name:CARLEEN MONTES Subscriber ID:[id number] Date of :1981 Address: [address] [place] [address] Payer ID:[id number] (NAIC) Type: [place]IFER Address: [facility] [id number] [place] [id number] Advance Directives For more information, please contact: [phone] * Full Code (Latest Code Status on File) Date Activated Date Inactivated Comments 12/06/2023 8:27 PM 12/07/2023 5:20 PM Care Teams Atm Servicer Relationship Specialty Start Date End Date Lisette Guido DNP [address] [facility] [address] [address] PCP - General Family Medicine 10/19/24
--- NOTE | 2025-05-29 14:48 | PC.NURSE ---
Nixon Gasca CNM informed of SVE. VERONICA has consulted with Dr. Martinez and orders received for induction of labor.
[2025-05-29 16:45] LABS: Syphilis IgG/IgM Antibody Non-Reactive (Nonreactive)
[2025-05-29] MEDS: LACTATED RINGERS 1,000 ML 75 ML IV CONT (17:00)
[2025-05-29] MEDS: MAGNESIUM SULF 4 GM/WATER100ML 4 GM/100 ML BAG IVPB (17:01)
--- NOTE | 2025-05-29 17:25 | WPDANESEPP ---
Anes - Eval Pre Procedure Procedure: Labor epidural Date/Time: 05/29/25 17:25 Surgeon: Mahnaz Preop Diagnosis: Abdominal pain with contractions Pre Op Diagnosis: hypertension in Patient Data Age: 25 Gender: F Height: 1.65 m Weight: 116.5 kg Last Vital Signs Pulse 99 05/29/25 17:15 BP 143/86 H 05/29/25 17:15 Allergies Allergy/AdvReac Type Severity Reaction Status Date / Time No Known Allergies Allergy Mild Verified 05/29/25 13:43 Home Medications ?Medication ?Instructions ?Recorded ?Confirmed ?Type cetirizine 10 mg tablet (24Hour 10 mg PO DAILY PRN allergy symptoms 05/19/25 05/29/25 History Allergy) duloxetine 30 mg capsule,delayed 30 mg PO DAILY 05/19/25 05/29/25 History release escitalopram oxalate 20 mg tablet 20 mg PO DAILY 05/19/25 05/29/25 History fluticasone 500 mcg-salmeterol 50 1 inh inhalation DAILY 05/19/25 05/29/25 History mcg/dose blistr powdr for inhalation vitamins with calcium 1 tablet PO DAILY 05/19/25 05/29/25 History no.72-iron 27 mg-folic acid 1 mg tablet (M- Plus) aspirin 81 mg capsule 81 mg PO DAILY 05/25/25 05/29/25 History fluticasone propionate 50 1 spray intranasal DAILY 05/25/25 05/29/25 History mcg/actuation nasal spray,suspension cholecalciferol (vitamin D3) 50 2,000 unit PO DAILY 05/29/25 05/29/25 History mcg (2,000 unit) capsule (Vitamin D3) Laboratory Tests 05/29/25 05/29/25 13:27 15:57 WBC 11.2 H K/mm3 (4.5-10.0) RBC 4.19 L M/mm3 (4.2-5.4) Hgb 12.8 g/dL (12.0-15.0) Hct 37.8 % (37.0-47.0) MCV 90.2 fl (80-100) MCH 30.5 pg (26-34) MCHC 33.9 g/dl (32-36) RDW 14.4 % (11.5-14.5) Plt Count 140 L k/mm3 (150-375) MPV 13.6 H fl (7.4-10.4) Immature Gran % (Auto) 1.7 H % (0-0.5) Neut % (Auto) 75.2 H % (45.5-73.1) Lymph % (Auto) 13.9 L % (18.3-44.2) Crawford % (Auto) 5.0 % (2.6-8.5) Eos % (Auto) 3.8 % (0-4.4) Baso % (Auto) 0.4 % (0.2-1.2) Lymph # (Auto) 1.55 K/mm3 (0.9-3.2) Crawford # (Auto) 0.6 K/mm3 (0.1-0.6) Eos # (Auto) 0.4 H K/mm3 (0-0.3) Baso # (Auto) 0.0 K/mm3 (0.0-0.1) Abs Immat Gran (auto) 0.19 H K/mm3 (0.00-0.031) Absolute Neuts (auto) 8.4 H K/mm3 (1.3-6.7) Absolute Nucleated RBC 0.000 K/mm3 (0.0-0.012) Nucleated RBC % 0.0 % (0.0-0.2) % Immature Plt Fraction 28.7 H % (0.9-11.2) Sodium 133 L mmol/L (137-145) Potassium 3.9 mmol/L (3.4-5.0) Chloride 107 mmol/L (98-107) Carbon Dioxide 18 L mmol/L (22-30) Anion Gap 8 mmol/L (4-12) BUN 9 mg/dL (7-17) Creatinine 0.71 mg/dL (0.7-1.0) Estim Creat Clear Calc 136 ml/min Estimated GFR > 60 (59 - ) Glucose 109 mg/dL (65-110) Uric Acid 8.8 H mg/dL (2.5-7.5) Calcium 9.1 mg/dL (8.4-10.2) Total Bilirubin 0.4 mg/dL (0.2-1.3) AST 29 U/L (14-36) ALT 31 U/L (6-35) Alkaline Phosphatase 147 H U/L (38-126) Total Protein 6.2 L g/dL (6.3-8.2) Albumin 3.2 L g/dL (3.5-5.1) Syphilis IgG/IgM Ab Non-reactive (Nonreactive) Blood Type A Positive Antibody Screen Negative : gestational age HCG: positive Patient hx anesthesia problems: none Family hx anesthesia problems: none Results Review: All pre-operative results and documents have been reviewed as part of the pre-operative evaluation. [facility] Past Medical History Medical History and not yet delivered Morbid obesity PIH ( induced hypertension) Family History Family History Other Family history of arthritis Family history of malignant neoplasm Hypertension Social History Social History Smoking status: Never smoker Alcohol intake: never Substance use: never Lack of Transportation: No Lack of Food: Never True Current Housing: I Have Housing Concerned About Future Housing: No Difficulty Paying Gas/Electric Bills: No Difficulty Paying for Meds: No Currently Unemployed: No Education: Bachelor's Degree Difficulty w/ Childcare or Family Care: No Spiritual care concerns: No Exam Day of Procedure 05/29/25 17:25 Patient weight: morbidly obese Airway: Mallampati scale class II
[2025-05-29] MEDS: MAGNESIUM SULF 20GM/WATER500ML 500 ML 50 MG IV CONT (17:32)
[2025-05-29] MEDS: AMPICILLIN SODIUM 2 GM in SODIUM CHLORIDE 0.9% IV 100 ML 200 ML IVPB (17:43)
[2025-05-29] MEDS: METOCLOPRAMIDE HCL INJ 10 MG/2 ML VIAL IV PUSH (18:45)
[2025-05-29] MEDS: AMPICILLIN SODIUM 1 GM in SODIUM CHLORIDE 0.9% IV 50 ML 100 ML IVPB (21:45)
[2025-05-30] VITALS (353 sets, daily range): BP systolic 105–165; BP diastolic 54–113; PULSE 66–129; RESP 14–16; TEMP 36.4–37.9; O2SAT 91–100
[2025-05-30] MEDS: AMPICILLIN SODIUM 1 GM in SODIUM CHLORIDE 0.9% IV 50 ML 100 ML IVPB ×6 (01:46→22:00)
[2025-05-30] MEDS: MAGNESIUM SULF 20GM/WATER500ML 500 ML 50 MG IV CONT ×3 (03:48→23:41)
--- NOTE | 2025-05-30 07:41 | PM.IMHP ---
H&P: HPI History of Present Illness Date/Time: 05/30/25 07:41 Chief Complaint: pt is a 25 y.o. G 1 P 0 at 36.5 weeks gestation, diagnosed with preeclampsia presented to with worsening blood pressures and a duarte that was not improved with tylenol, caffeine or flexeril. decision made for IOL for preeclampsia with severe features. has been complicated by asthma, anxiety treated with duloxetine and lexapro, ADHD, obesity. co-managed overnight with dr. freire. FHR category 1, contactions every 2-3 min, mild to palpation. bp's normotensive and duarte is improving. magnesium sulfate at 2 gm/hour Review of Systems Review of Systems: All systems reviewed & are unremarkable except as noted in HPI and below PMFSH Past Medical History Medical History and not yet delivered Morbid obesity PIH ( induced hypertension) Family History Family History Other Family history of arthritis Family history of malignant neoplasm Hypertension Social History Social History Smoking status: Never smoker Second hand tobacco smoke exposure: Yes Alcohol intake: never Substance use: never Lack of Transportation: No Lack of Food: Never True Current Housing: I Have Housing Concerned About Future Housing: No Difficulty Paying Gas/Electric Bills: No Difficulty Paying for Meds: No Currently Unemployed: No Education: Bachelor's Degree Difficulty w/ Childcare or Family Care: No Spiritual care concerns: No Meds Home Medications and Allergies Home Medications ?Medication ?Instructions ?Recorded ?Confirmed ?Type cetirizine 10 mg tablet (24Hour 10 mg PO DAILY PRN allergy symptoms 05/19/25 05/29/25 History Allergy) duloxetine 30 mg capsule,delayed 30 mg PO DAILY 05/19/25 05/29/25 History release escitalopram oxalate 20 mg tablet 20 mg PO DAILY 05/19/25 05/29/25 History fluticasone 500 mcg-salmeterol 50 1 inh inhalation DAILY 05/19/25 05/29/25 History mcg/dose blistr powdr for inhalation vitamins with calcium 1 tablet PO DAILY 05/19/25 05/29/25 History no.72-iron 27 mg-folic acid 1 mg tablet (M- Plus) aspirin 81 mg capsule 81 mg PO DAILY 05/25/25 05/29/25 History fluticasone propionate 50 1 spray intranasal DAILY 05/25/25 05/29/25 History mcg/actuation nasal spray,suspension cholecalciferol (vitamin D3) 50 2,000 unit PO DAILY 05/29/25 05/29/25 History mcg (2,000 unit) capsule (Vitamin D3) Allergies Allergy/AdvReac Type Severity Reaction Status Date / Time Fish Containing Products Allergy Severe Anaphylaxis Verified 05/29/25 18:55 soy Allergy Severe Anaphylaxis Verified 05/29/25 18:55 Vital Signs Vital Signs - 24 hr 05/29/25 13:05 05/29/25 13:14 05/29/25 13:31 Temperature Pulse Rate 102 H 93 89 Respiratory Rate Blood Pressure 149/92 H 148/89 H Blood Pressure [Left Arm] 149/92 H Pulse Oximetry Oxygen Delivery 05/29/25 13:46 05/29/25 13:51 05/29/25 14:01 Temperature Pulse Rate 87 82 89 Respiratory Rate Blood Pressure 144/87 H 156/95 H Blood Pressure [Left Arm] 144/87 H Pulse Oximetry Oxygen Delivery 05/29/25 14:16 05/29/25 17:00 05/29/25 17:00 Temperature 37.0 C Pulse Rate 84 Respiratory Rate Blood Pressure 147/90 H Blood Pressure [Left Arm] Pulse Oximetry Oxygen Delivery Room Air 05/29/25 17:06 05/29/25 17:15 05/29/25 17:30 Temperature Pulse Rate 96 99 104 H Respiratory Rate Blood Pressure 151/107 H 143/86 H 142/84 H Blood Pressure [Left Arm] Pulse Oximetry Oxygen Delivery 05/29/25 17:45 05/29/25 18:00 05/29/25 18:15 Temperature 37.3 C Pulse Rate 94 91 95 Respiratory Rate Blood Pressure 148/85 H 155/84 H 140/87 Blood Pressure [Left Arm] Pulse Oximetry Oxygen Delivery 05/29/25 18:30 05/29/25 18:45 05/29/25 19:00 Temperature 37.2 C Pulse Rate 94 90 91 Respiratory Rate Blood Pressure 147/89 H 148/86 H 147/86 H Blood Pressure [Left Arm] Pulse Oximetry Oxygen Delivery 05/29/25 19:15 05/29/25 19:30 05/29/25 19:45 Temperature Pulse Rate 90 95 93 Respiratory Rate Blood Pressure 143/91 H 150/93 H 148/92 H Blood Pressure [Left Arm] Pulse Oximetry Oxygen Delivery 05/29/25 20:00 05/29/25 20:15 05/29/25 20:30 Temperature Pulse Rate 90 90 91 Respiratory Rate Blood Pressure 142/91 H 154/101 H 158/98 H Blood Pressure [Left Arm] Pulse Oximetry Oxygen Delivery 05/29/25 20:45 05/29/25 21:00 05/29/25 21:15 Temperature Pulse Rate 91 86 85 Respiratory Rate Blood Pressure 146/81 H 142/88 H 147/89 H Blood Pressure [Left Arm] Pulse Oximetry Oxygen Delivery 05/29/25 21:30 05/29/25 21:45 05/29/25 22:00 Temperature Pulse Rate 87 85 94 Respiratory Rate Blood Pressure 142/89 H 150/92 H 147/101 H Blood Pressure [Left Arm] Pulse Oximetry Oxygen Delivery 05/29/25 22:15 05/29/25 22:30 05/29/25 22:30 Temperature Pulse Rate 91 89 Respiratory Rate 16 Blood Pressure 154/90 H 151/102 H Blood Pressure [Left Arm] Pulse Oximetry Oxygen Delivery 05/29/25 22:45 05/29/25 23:00 05/29/25 23:32 Temperature Pulse Rate 91 95 91 Respiratory Rate Blood Pressure 152/92 H 160/95 H 149/94 H Blood Pressure [Left Arm] Pulse Oximetry Oxygen Delivery 05/30/25 00:01 05/30/25 00:31 05/30/25 01:00 Temperature Pulse Rate 89 86 88 Respiratory Rate Blood Pressure 143/88 H 150/95 H 143/92 H Blood Pressure [Left Arm] Pulse Oximetry Oxygen Delivery 05/30/25 01:12 05/30/25 01:17 05/30/25 01:22 Temperature 36.4 C L Pulse Rate Respiratory Rate Blood Pressure Blood Pressure [Left Arm] Pulse Oximetry 99 96 97 Oxygen Delivery 05/30/25 01:27 05/30/25 01:32 05/30/25 01:37 Temperature Pulse Rate 77 Respiratory Rate Blood Pressure 146/90 H Blood Pressure [Left Arm] Pulse Oximetry 98 97 97 Oxygen Delivery 05/30/25 01:42 05/30/25 01:47 05/30/25 01:52 Temperature Pulse Rate Respiratory Rate Blood Pressure Blood Pressure [Left Arm] Pulse Oximetry 96 97 100 Oxygen Delivery 05/30/25 01:57 05/30/25 02:00 05/30/25 02:02 Temperature Pulse Rate 82 Respiratory Rate Blood Pressure 155/97 H Blood Pressure [Left Arm] Pulse Oximetry 99 97 Oxygen Delivery 05/30/25 02:07 05/30/25 02:12 05/30/25 02:17 Temperature Pulse Rate Respiratory Rate Blood Pressure Blood Pressure [Left Arm] Pulse Oximetry 97 97 96 Oxygen Delivery 05/30/25 02:22 05/30/25 02:27 05/30/25 02:30 Temperature Pulse Rate 86 Respiratory Rate Blood Pressure 153/87 H Blood Pressure [Left Arm] Pulse Oximetry 95 96 Oxygen Delivery 05/30/25 02:32 05/30/25 02:37 05/30/25 02:42 Temperature Pulse Rate Respiratory Rate Blood Pressure Blood Pressure [Left Arm] Pulse Oximetry 96 96 95 Oxygen Delivery 05/30/25 02:47 05/30/25 02:52 05/30/25 02:57 Temperature Pulse Rate Respiratory Rate Blood Pressure Blood Pressure [Left Arm] Pulse Oximetry 96 95 97 Oxygen Delivery 05/30/25 03:00 05/30/25 03:02 05/30/25 03:07 Temperature Pulse Rate 100 Respiratory Rate Blood Pressure 150/97 H Blood Pressure [Left Arm] Pulse Oximetry 97 96 Oxygen Delivery 05/30/25 03:12 05/30/25 03:17 05/30/25 03:22 Temperature Pulse Rate Respiratory Rate Blood Pressure Blood Pressure [Left Arm] Pulse Oximetry 96 96 98 Oxygen Delivery 05/30/25 03:29 05/30/25 03:30 05/30/25 03:34 Temperature 36.8 C Pulse Rate 88 Respiratory Rate Blood Pressure 163/93 H Blood Pressure [Left Arm] Pulse Oximetry 95 100 Oxygen Delivery 05/30/25 03:39 05/30/25 03:44 05/30/25 03:48 Temperature 36.8 C Pulse Rate Respiratory Rate 14 Blood Pressure Blood Pressure [Left Arm] Pulse Oximetry 97 96 Oxygen Delivery 05/30/25 03:49 05/30/25 03:54 05/30/25 03:59 Temperature Pulse Rate Respiratory Rate Blood Pressure Blood Pressure [Left Arm] Pulse Oximetry 98 99 98 Oxygen Delivery 05/30/25 04:00 05/30/25 04:04 05/30/25 04:09 Temperature Pulse Rate 83 Respiratory Rate Blood Pressure 139/75 Blood Pressure [Left Arm] Pulse Oximetry 97 97 Oxygen Delivery 05/30/25 04:14 05/30/25 04:19 05/30/25 04:24 Temperature Pulse Rate Respiratory Rate Blood Pressure Blood Pressure [Left Arm] Pulse Oximetry 97 96 95 Oxygen Delivery 05/30/25 04:29 05/30/25 04:30 05/30/25 04:34 Temperature Pulse Rate 88 Respiratory Rate Blood Pressure 126/74 Blood Pressure [Left Arm] Pulse Oximetry 98 97 Oxygen Delivery 05/30/25 04:39 05/30/25 04:44 05/30/25 04:49 Temperature Pulse Rate Respiratory Rate Blood Pressure Blood Pressure [Left Arm] Pulse Oximetry 95 93 92 Oxygen Delivery 05/30/25 04:54 05/30/25 04:59 05/30/25 05:01 Temperature Pulse Rate 90 Respiratory Rate Blood Pressure 132/68 Blood Pressure [Left Arm] Pulse Oximetry 96 96 Oxygen Delivery 05/30/25 05:04 05/30/25 05:13 05/30/25 05:18 Temperature Pulse Rate Respiratory Rate Blood Pressure Blood Pressure [Left Arm] Pulse Oximetry 91 95 100 Oxygen Delivery 05/30/25 05:23 05/30/25 05:28 05/30/25 05:30 Temperature Pulse Rate 92 Respiratory Rate Blood Pressure 140/91 H Blood Pressure [Left Arm] Pulse Oximetry 97 96 Oxygen Delivery 05/30/25 05:33 05/30/25 05:38 05/30/25 05:43 Temperature Pulse Rate Respiratory Rate Blood Pressure Blood Pressure [Left Arm] Pulse Oximetry 98 98 100 Oxygen Delivery 05/30/25 05:48 05/30/25 05:53 05/30/25 05:58 Temperature Pulse Rate Respiratory Rate Blood Pressure Blood Pressure [Left Arm] Pulse Oximetry 99 99 93 Oxygen Delivery 05/30/25 06:00 05/30/25 06:03 05/30/25 06:08 Temperature Pulse Rate 88 Respiratory Rate Blood Pressure 143/96 H Blood Pressure [Left Arm] Pulse Oximetry 97 97 Oxygen Delivery 05/30/25 06:13 05/30/25 06:18 05/30/25 06:23 Temperature Pulse Rate Respiratory Rate Blood Pressure Blood Pressure [Left Arm] Pulse Oximetry 98 98 99 Oxygen Delivery 05/30/25 06:37 05/30/25 06:42 05/30/25 06:47 Temperature Pulse Rate Respiratory Rate Blood Pressure Blood Pressure [Left Arm] Pulse Oximetry 100 99 100 Oxygen Delivery 05/30/25 06:52 05/30/25 06:57 05/30/25 06:58 Temperature Pulse Rate Respiratory Rate Blood Pressure Blood Pressure [Left Arm] Pulse Oximetry 100 100 99 Oxygen Delivery 05/30/25 07:00 05/30/25 07:03 05/30/25 07:08 Temperature Pulse Rate 105 H Respiratory Rate Blood Pressure 158/103 H Blood Pressure [Left Arm] Pulse Oximetry 98 99 Oxygen Delivery 05/30/25 07:13 05/30/25 07:18 05/30/25 07:23 Temperature Pulse Rate Respiratory Rate Blood Pressure Blood Pressure [Left Arm] Pulse Oximetry 97 96 96 Oxygen Delivery 05/30/25 07:28 05/30/25 07:38 Temperature Pulse Rate Respiratory Rate Blood Pressure Blood Pressure [Left Arm] Pulse Oximetry 98 96 Oxygen Delivery Exam Const: General: cooperative and healthy appearing Eyes: General: appearance normal, both eyes and all related structures Chest: Chest palpation & inspection: normal inspection of the chest Resp: Effort & Inspection: normal respiratory effort Cardio: Rate: regular rate GI: Other: soft/gravid : Other: SVE 1-2/70/-2 soft, cook catheter placed, 40 cc in each balloon Skin: General skin exam: normal color Neuro: General: patient oriented x3 Extrem: General: normal to inspection Psych: Appearance: grossly normal H&P: Results Labs Labs: Short CBC 05/29/25 Range/Units 13:27 WBC 11.2 H (4.5-10.0) K/mm3 Hgb 12.8 (12.0-15.0) g/dL Hct 37.8 (37.0-47.0) % Plt Count 140 L (150-375) k/mm3 BMP 05/29/25 13:27 Sodium 133 L Potassium 3.9 Chloride 107 Carbon Dioxide 18 L BUN 9 Creatinine 0.71 Glucose 109 Calcium 9.1 Liver Function 05/29/25 Range/Units 13:27 Total Bilirubin 0.4 (0.2-1.3) mg/dL AST 29 (14-36) U/L ALT 31 (6-35) U/L Alkaline Phosphatase 147 H (38-126) U/L Albumin 3.2 L (3.5-5.1) g/dL Assessment and Plan Assessment and plan (1) Pre-eclampsia during in second trimester, antepartum: Code(s): O14.92 - Unspecified pre-eclampsia, second trimester Status: Acute Assessment and Plan: continue IOL rpt labs co-managing now with dr. lucero (2) Asthma: Code(s): J45.909 - Unspecified asthma, uncomplicated Status: Acute (3) Obesity: Code(s): E66.9 - Obesity, unspecified Status: Acute (4) Anxiety: Code(s): F41.9 - Anxiety disorder, unspecified Status: Acute
[2025-05-30] MEDS: LACTATED RINGERS 1,000 ML 75 ML IV CONT ×2 (07:45→16:44)
[2025-05-30 08:07] LABS: Hematocrit 41.3 % (37.0-47.0); Hemoglobin 14.1 g/dL (12.0-15.0); Immature Granulocyte Percent A 1.2 % (0-0.5); Immature Platelet Fraction Pct 27.2 % (0.9-11.2); Lymphocytes Absolute Auto 1.03 K/mm3 (0.9-3.2); Mean Corpuscular HGB Conc 34.1 g/dl (32-36); Mean Corpuscular Hemoglobin 30.7 pg (26-34); Mean Corpuscular Volume 89.8 fl (80-100); Nucleated Red Blood Cells Absolute Auto 0.000 K/mm3 (0.0-0.012); Nucleated Red Blood Cells Perc 0.0 % (0.0-0.2); Platelet Count Result 150 k/mm3 (150-375); Red Blood Count 4.60 M/mm3 (4.2-5.4); White Blood Count 14.9 K/mm3 (4.5-10.0)
[2025-05-30] MEDS: ONDANSETRON INJ 4 MG/2 ML VIAL IV PUSH (08:10)
[2025-05-30 08:25] LABS: Alanine Aminotransferase 33 U/L (6-35); Albumin Level 3.5 g/dL (3.5-5.1); Alkaline Phosphatase 198 U/L (38-126); Anion Gap 7 mmol/L (4-12); Aspartate Amino Transferase 30 U/L (14-36); Bilirubin,Total 0.4 mg/dL (0.2-1.3); Blood Urea Nitrogen 8 mg/dL (7-17); Calcium 8.2 mg/dL (8.4-10.2); Carbon Dioxide 20 mmol/L (22-30); Chloride 105 mmol/L (98-107); Estimated CRCL calculation 129 ml/min; Estimated Glomerular Filt Rate > 60; Glucose 102 mg/dL (65-110); Potassium 4.1 mmol/L (3.4-5.0); Sodium 132 mmol/L (137-145); Total Protein 6.7 g/dL (6.3-8.2); Uric Acid 9.3 mg/dL (2.5-7.5)
[2025-05-30 08:29] LABS: Giant Platelets Present
[2025-05-30 08:30] LABS: Schistocytes None Seen
[2025-05-30] MEDS: OXYTOCIN 30 UNITS/NS 500 ML 30 UNITS/500 ML BAG IV CONT (10:08)
--- NOTE | 2025-05-30 12:28 | PM.OBPNLAB ---
Pain Control Date/time seen: 05/30/25 12:28 Comments: FHr category 1 contractions difficult to monitor, SVE 4-5/70/-2 arom clear odorless fluid, IUPC placed
[2025-05-30] MEDS: ESCITALOPRAM OXALATE 10 MG TABLET 20 MG PO (13:54)
[2025-05-30] MEDS: ACETAMINOPHEN 500 MG TABLET 1000 MG PO (16:37)
[2025-05-31] VITALS (58 sets, daily range): BP systolic 112–157; BP diastolic 81–100; PULSE 80–128; RESP 16–20; TEMP 36.8–36.9; O2SAT 91–100
[2025-05-31] MEDS: fentaNYL CITRATE INJ (*CRX) 100 MCG/2 ML VIAL IV PUSH (00:26)
[2025-05-31] MEDS: OXYTOCIN 30 UNITS/NS 500 ML 30 UNITS/500 ML BAG 125 UNITS IV CONT (00:29)
[2025-05-31] MEDS: TRANEXAMIC ACID 1,000MG/ISO100 1,000 MG/100 ML BAG 600 MG IVPB ×2 (00:41→09:35)
[2025-05-31 00:46] LABS: Hematocrit 37.7 % (37.0-47.0); Hemoglobin 12.7 g/dL (12.0-15.0); Immature Granulocyte Percent A 1.3 % (0-0.5); Immature Platelet Fraction Pct 27.4 % (0.9-11.2); Lymphocytes Absolute Auto 1.12 K/mm3 (0.9-3.2); Mean Corpuscular HGB Conc 33.7 g/dl (32-36); Mean Corpuscular Hemoglobin 30.6 pg (26-34); Mean Corpuscular Volume 90.8 fl (80-100); Nucleated Red Blood Cells Absolute Auto 0.000 K/mm3 (0.0-0.012); Nucleated Red Blood Cells Perc 0.0 % (0.0-0.2); Platelet Count Result 156 k/mm3 (150-375); Red Blood Count 4.15 M/mm3 (4.2-5.4); White Blood Count 17.5 K/mm3 (4.5-10.0)
--- NOTE | 2025-05-31 00:47 | PM.OBPRVD ---
OB - Vaginal Delivery Note Procedure Delivery date: 05/31/25 Events: Preeclampsia w severe features Induction method: AROM, Per Misoprostol Protocol and Per Pitocin Protocol Delivery monitor: External FHT and Internal Uterine Route of delivery: Episiotomy description: None Laceration Description: Perineal - 1st Degree and Labial (left) Delivery repair: vicryl Specimen: Yes Quantitative Blood Loss (ml): 1,485 Anesthesia type: Epidural Disposition: Floor Narrative: placenta delivered and fundus boggy even with internal and external massage, uterine sweep for clots, cytotec rectal and no improvement with quick blood loss, LUISA placed with 120 cc saline and hooked to suction. stable, VSS stable. [place] Baby Date of : 05/31/25 Time of : 00:11 Gestational Age by Date: 38 gender: Female Weight (pounds): 5 Weight (ounces): 7 presentation: vertex position: Left Occiput Anterior Placenta delivery description: Expressed Cord Vessel Description: 3 Vessels, Nuchal Cord (x1) and Loose
[2025-05-31 00:51] LABS: Alanine Aminotransferase 38 U/L (6-35); Albumin Level 2.8 g/dL (3.5-5.1); Alkaline Phosphatase 179 U/L (38-126); Anion Gap 9 mmol/L (4-12); Aspartate Amino Transferase 31 U/L (14-36); Bilirubin,Total 0.5 mg/dL (0.2-1.3); Blood Urea Nitrogen 8 mg/dL (7-17); Calcium 7.8 mg/dL (8.4-10.2); Carbon Dioxide 18 mmol/L (22-30); Chloride 104 mmol/L (98-107); Estimated CRCL calculation 109 ml/min; Estimated Glomerular Filt Rate > 60; Glucose 120 mg/dL (65-110); Potassium 4.1 mmol/L (3.4-5.0); Sodium 131 mmol/L (137-145); Total Protein 5.4 g/dL (6.3-8.2)
[2025-05-31 00:56] LABS: INR 1.0; Partial Thromboplastin Time 23.3 Seconds (22.3-36.8); Prothrombin Time 13.4 Seconds (11.1-14.7)
[2025-05-31 00:57] LABS: Fibrinogen 406 mg/dl (215-510)
[2025-05-31 01:05] LABS: Magnesium 6.1 mg/dL (1.6-2.3)
[2025-05-31 01:06] LABS: Schistocytes None Seen
[2025-05-31] MEDS: ONDANSETRON INJ 4 MG/2 ML VIAL IV PUSH (01:24)
[2025-05-31 05:45] LABS: Hematocrit 35.4 % (37.0-47.0); Hemoglobin 11.7 g/dL (12.0-15.0); Mean Corpuscular HGB Conc 33.1 g/dl (32-36); Mean Corpuscular Hemoglobin 30.4 pg (26-34); Mean Corpuscular Volume 91.9 fl (80-100); Platelet Count Result 127 k/mm3 (150-375); Red Blood Count 3.85 M/mm3 (4.2-5.4); White Blood Count 21.5 K/mm3 (4.5-10.0)
[2025-05-31 05:55] LABS: Alanine Aminotransferase 30 U/L (6-35); Albumin Level 2.8 g/dL (3.5-5.1); Alkaline Phosphatase 142 U/L (38-126); Anion Gap 7 mmol/L (4-12); Aspartate Amino Transferase 37 U/L (14-36); Bilirubin,Total 0.5 mg/dL (0.2-1.3); Blood Urea Nitrogen 8 mg/dL (7-17); Calcium 7.5 mg/dL (8.4-10.2); Carbon Dioxide 21 mmol/L (22-30); Chloride 102 mmol/L (98-107); Estimated CRCL calculation 117 ml/min; Estimated Glomerular Filt Rate > 60; Glucose 145 mg/dL (65-110); Potassium 4.1 mmol/L (3.4-5.0); Sodium 130 mmol/L (137-145); Total Protein 5.3 g/dL (6.3-8.2); Uric Acid 9.6 mg/dL (2.5-7.5)
--- NOTE | 2025-05-31 06:50 | PC.NURSE ---
Addendum entered by Mary Blackwood RN 05/31/25 08:29: Catherine d/c'd at 0720 per Delfino Gasca CNM. Original Note: Delfino Gasca CNM here to d/c Catherine. Delfino Gasca successfully removed Catherine after removal of 120 ml of fluid via syringe. Minimal vag. bleeding noted. Fundus firm at u/u.
[2025-05-31] MEDS: LACTATED RINGERS 1,000 ML 200 ML IV CONT ×2 (06:56→19:44)
--- NOTE | 2025-05-31 07:15 | PM.OBPNVD ---
OB - PN: Subj Subjective Date/time seen: 05/31/25 07:15 Interval history: pt doing well bp's elevated, labs stable denies duarte visual changes epigastric pain bleeding minimal overnight, gallo suction off gallo removed w/o difficulty, fundus firm dr lucero notified, rpt labs at noon, magnesium sulfate x 24 hours OB - PN: Obj Data Labs 05/31/25 05:36 05/31/25 05:36 Labs: Laboratory Results - last 24 hr 05/30/25 05/31/25 05/31/25 07:55 00:34 05:36 WBC 14.9 H 17.5 H 21.5 H RBC 4.60 4.15 L 3.85 L Hgb 14.1 12.7 11.7 L Hct 41.3 37.7 35.4 L MCV 89.8 90.8 91.9 MCH 30.7 30.6 30.4 MCHC 34.1 33.7 33.1 RDW 14.6 H 14.3 14.3 Plt Count 150 156 127 L MPV 13.3 H 13.2 H 14.1 H Immature Gran % (Auto) 1.2 H 1.3 H Neut % (Auto) 83.5 H 87.6 H Lymph % (Auto) 6.9 L 6.4 L Granite % (Auto) 5.5 4.3 Eos % (Auto) 2.5 0.1 Baso % (Auto) 0.4 0.3 Lymph # (Auto) 1.03 1.12 Granite # (Auto) 0.8 H 0.8 H Eos # (Auto) 0.4 H 0.0 Baso # (Auto) 0.1 0.1 Abs Immat Gran (auto) 0.18 H 0.22 H Absolute Neuts (auto) 12.5 H 15.3 H Absolute Nucleated RBC 0.000 0.000 Band Neutrophils % Not Reportable Not Reportable Nucleated RBC % 0.0 0.0 Platelet Estimate Adequate Adequate Large Platelets Present Present Giant Platelets Present % Immature Plt Fraction 27.2 H 27.4 H Schistocytes None seen None seen PT 13.4 INR 1.0 APTT 23.3 Fibrinogen 406 D-Dimer 1.77 H Sodium 132 L 131 L 130 L Potassium 4.1 4.1 4.1 Chloride 105 104 102 Carbon Dioxide 20 L 18 L 21 L Anion Gap 7 9 7 BUN 8 8 8 Creatinine 0.75 0.90 0.83 Estim Creat Clear Calc 129 109 117 Estimated GFR > 60 > 60 > 60 Glucose 102 120 H 145 H Uric Acid 9.3 H 9.6 H Calcium 8.2 L 7.8 L 7.5 L Magnesium 6.1 H Total Bilirubin 0.4 0.5 0.5 AST 30 31 37 H ALT 33 38 H 30 Alkaline Phosphatase 198 H 179 H 142 H Total Protein 6.7 5.4 L 5.3 L Albumin 3.5 2.8 L 2.8 L OB - PN A/P Time Spent With Patient Time: Total time spent is greater than 50% in coordination of care (as documented) at patient's floor/unit and/or counseling patient:
[2025-05-31] MEDS: LABETALOL HCL 100 MG TABLET 200 MG PO ×2 (08:57→21:00)
[2025-05-31] MEDS: MULTIVIT/MIN/PREN/FOL AC/IRON TABLET 1 TAB PO (08:57)
[2025-05-31] MEDS: DOCUSATE SODIUM 100 MG CAPSULE PO ×2 (08:57→16:31)
[2025-05-31] MEDS: ESCITALOPRAM OXALATE 10 MG TABLET 20 MG PO (08:57)
[2025-05-31] MEDS: MAGNESIUM SULF 20GM/WATER500ML 500 ML 50 MG IV CONT ×2 (08:59→19:45)
[2025-05-31] MEDS: WITCH HAZEL 40 PADS 1 PAD TOPICAL (09:09)
[2025-05-31] MEDS: IBUPROFEN 600 MG TABLET PO ×2 (09:09→19:50)
--- NOTE | 2025-05-31 09:20 | PC.NURSE ---
Called Delfino Gasca CNM regarding pt's bleeding since Catherine removal. Pt has had two pads of vaginal bleeding weighing 130 grams QBL. Fundus firm at u/u. S aCmpos ordered bedside ultrasound to check for contents of conception, cytotec 800 mg PO x1 and tranexamic acid IVPB per PP hemorrhage protocol dosing x1.
--- NOTE | 2025-05-31 09:45 | PC.NURSE ---
Shelly Toledo RN assisted RN at pt's bedside. Fundal check per Hudson Toledo found pt's uterus to remain firm at u/u with minimal vag. bleeding noted at this time.
--- NOTE | 2025-05-31 10:10 | PC.NURSE ---
Weighed pt's peripad. 59 QBL noted.
--- NOTE | 2025-05-31 12:18 | PC.NURSE ---
Pumping initiation discussed with Primary RN Mary Blackwood - patient is feeling exhausted and is currently receiving TXA for blood loss per RN. Primary RN will notify this RN if patient is feeling up to pumping today.
--- NOTE | 2025-05-31 12:20 | PC.NURSE ---
Pt's peripad changed. QBL 38 ml.
[2025-05-31 13:18] LABS: Hematocrit 34.3 % (37.0-47.0); Hemoglobin 11.5 g/dL (12.0-15.0); Immature Granulocyte Percent A 1.2 % (0-0.5); Immature Platelet Fraction Pct 26.3 % (0.9-11.2); Lymphocytes Absolute Auto 1.58 K/mm3 (0.9-3.2); Mean Corpuscular HGB Conc 33.5 g/dl (32-36); Mean Corpuscular Hemoglobin 30.7 pg (26-34); Mean Corpuscular Volume 91.5 fl (80-100); Nucleated Red Blood Cells Absolute Auto 0.000 K/mm3 (0.0-0.012); Nucleated Red Blood Cells Perc 0.0 % (0.0-0.2); Platelet Count Result 162 k/mm3 (150-375); Red Blood Count 3.75 M/mm3 (4.2-5.4); White Blood Count 21.4 K/mm3 (4.5-10.0)
[2025-05-31 13:38] LABS: Alanine Aminotransferase 31 U/L (6-35); Albumin Level 3.1 g/dL (3.5-5.1); Alkaline Phosphatase 145 U/L (38-126); Anion Gap 7 mmol/L (4-12); Aspartate Amino Transferase 45 U/L (14-36); Bilirubin,Total 0.4 mg/dL (0.2-1.3); Blood Urea Nitrogen 10 mg/dL (7-17); Calcium 7.7 mg/dL (8.4-10.2); Carbon Dioxide 22 mmol/L (22-30); Chloride 100 mmol/L (98-107); Estimated CRCL calculation 98 ml/min; Estimated Glomerular Filt Rate > 60; Glucose 101 mg/dL (65-110); Potassium 4.5 mmol/L (3.4-5.0); Sodium 129 mmol/L (137-145); Total Protein 6.1 g/dL (6.3-8.2); Uric Acid 10.2 mg/dL (2.5-7.5)
--- NOTE | 2025-05-31 15:20 | PC.NURSE ---
Pt's peripad changed. Did not weigh for QBL. Small amount of bleeding noted on pad. Fundus firm at u/u.
--- NOTE | 2025-05-31 16:30 | PC.NURSE ---
Breast pump provided due to [ transferred to [facility]]. Instructions given on cleaning, care, usage, that there should be no pain, pumping schedule for milk production, collection, and storage of human milk. Patient was assessed for correct placement, flange size, to pump for comfort and nipple stretching/stimulation for adequate milk production every 3 hours (8 times in 24 hours) 1-2 times at night. Mothers nipple measurement is 20mm. Flange size for [employer] breastpump is size 24mm flange.?Reported to the Primary RN.
[2025-06-01] VITALS (8 sets, daily range): BP systolic 117–150; BP diastolic 79–97; PULSE 84–99; RESP 16–18; TEMP 36.5–37.2; O2SAT 95–100
--- NOTE | 2025-06-01 07:25 | PM.OBPNVD ---
OB - PN: Subj Subjective Date/time seen: 06/01/25 07:25 Interval history: PP day 1 magnesium dc'd at midnight chung catheter removed bp normotensive denies sxs OB - PN: Obj Data Labs 05/31/25 12:55 05/31/25 12:55 Labs: Laboratory Results - last 24 hr 05/31/25 12:55 WBC 21.4 H RBC 3.75 L Hgb 11.5 L Hct 34.3 L MCV 91.5 MCH 30.7 MCHC 33.5 RDW 14.6 H Plt Count 162 MPV 13.7 H Immature Gran % (Auto) 1.2 H Neut % (Auto) 85.7 H Lymph % (Auto) 7.4 L Roberts % (Auto) 5.2 Eos % (Auto) 0.1 Baso % (Auto) 0.4 Lymph # (Auto) 1.58 Roberts # (Auto) 1.1 H Eos # (Auto) 0.0 Baso # (Auto) 0.1 Abs Immat Gran (auto) 0.25 H Absolute Neuts (auto) 18.3 H Absolute Nucleated RBC 0.000 Nucleated RBC % 0.0 % Immature Plt Fraction 26.3 H Sodium 129 L Potassium 4.5 Chloride 100 Carbon Dioxide 22 Anion Gap 7 BUN 10 Creatinine 1.00 Estim Creat Clear Calc 98 Estimated GFR > 60 Glucose 101 Uric Acid 10.2 H Calcium 7.7 L Total Bilirubin 0.4 AST 45 H ALT 31 Alkaline Phosphatase 145 H Total Protein 6.1 L Albumin 3.1 L Imaging Radiologist's impression: Impressions Pelvis Ultrasound 05/31/25 11:06 IMPRESSION: Enlarged, heterogeneous uterus with air and minimal fluid in the endometrium/endometrial cavity, consistent with the known history. OB - PN A/P Plan day: 1 Plan: routine care and discharge home Time Spent With Patient Time: Total time spent is greater than 50% in coordination of care (as documented) at patient's floor/unit and/or counseling patient: Review of Systems Review of Systems: All systems reviewed & are unremarkable except as noted in HPI and below Exam Const: General: cooperative and healthy appearing Chest: Chest palpation & inspection: normal inspection of the chest Resp: Effort & Inspection: normal respiratory effort Cardio: Rate: regular rate Back/Spine/Pelvis: Back: no CVA tenderness Skin: General skin exam: normal color Neuro: General: patient oriented x3 Extrem: Right lower extremity: normal to inspection Left lower extremity: normal to inspection Psych: Appearance: grossly normal
[2025-06-01] MEDS: LABETALOL HCL 100 MG TABLET 200 MG PO ×2 (09:31→20:05)
[2025-06-01] MEDS: ESCITALOPRAM OXALATE 10 MG TABLET 20 MG PO (09:32)
[2025-06-01] MEDS: MULTIVIT/MIN/PREN/FOL AC/IRON TABLET 1 TAB PO (09:32)
[2025-06-01] MEDS: DOCUSATE SODIUM 100 MG CAPSULE PO ×2 (09:32→17:47)
[2025-06-01 15:58] LABS: Hematocrit 29.2 % (37.0-47.0); Hemoglobin 9.7 g/dL (12.0-15.0); Immature Granulocyte Percent A 1.4 % (0-0.5); Lymphocytes Absolute Auto 1.59 K/mm3 (0.9-3.2); Mean Corpuscular HGB Conc 33.2 g/dl (32-36); Mean Corpuscular Hemoglobin 30.7 pg (26-34); Mean Corpuscular Volume 92.4 fl (80-100); Nucleated Red Blood Cells Absolute Auto 0.000 K/mm3 (0.0-0.012); Nucleated Red Blood Cells Perc 0.0 % (0.0-0.2); Platelet Count Result 135 k/mm3 (150-375); Red Blood Count 3.16 M/mm3 (4.2-5.4); White Blood Count 12.4 K/mm3 (4.5-10.0)
[2025-06-01 16:08] LABS: Alanine Aminotransferase 23 U/L (6-35); Albumin Level 2.9 g/dL (3.5-5.1); Alkaline Phosphatase 106 U/L (38-126); Anion Gap 4 mmol/L (4-12); Aspartate Amino Transferase 23 U/L (14-36); Bilirubin,Total 0.2 mg/dL (0.2-1.3); Blood Urea Nitrogen 12 mg/dL (7-17); Calcium 8.3 mg/dL (8.4-10.2); Carbon Dioxide 26 mmol/L (22-30); Chloride 105 mmol/L (98-107); Estimated CRCL calculation 113 ml/min; Estimated Glomerular Filt Rate > 60; Glucose 101 mg/dL (65-110); Potassium 4.0 mmol/L (3.4-5.0); Sodium 135 mmol/L (137-145); Total Protein 5.6 g/dL (6.3-8.2); Uric Acid 9.5 mg/dL (2.5-7.5)
[2025-06-02] VITALS: BP 131/82; PULSE 98
[2025-06-02 03:45] VITALS: BP 131/75; PULSE 89
[2025-06-02 08:00] VITALS: BP 158/102; PULSE 95; RESP 16; TEMP 37.1; O2SAT 99
[2025-06-02 09:00] VITALS: BP 150/92; PULSE 95
[2025-06-02] MEDS: ESCITALOPRAM OXALATE 10 MG TABLET 20 MG PO (09:00)
[2025-06-02] MEDS: LABETALOL HCL 100 MG TABLET 200 MG PO ×2 (09:00→10:00)
[2025-06-02] MEDS: MULTIVIT/MIN/PREN/FOL AC/IRON TABLET 1 TAB PO (09:00)
[2025-06-02] MEDS: DOCUSATE SODIUM 100 MG CAPSULE PO (09:00)
--- NOTE | 2025-06-02 09:53 | PM.OBPNVD ---
OB - PN: Subj Subjective Date/time seen: 06/02/25 09:53 Patient comments: no complaints, pain well controlled and tolerating diet OB - PN: Obj Data Labs 06/01/25 15:50 06/01/25 15:50 Labs: Laboratory Results - last 24 hr 06/01/25 15:50 WBC 12.4 H RBC 3.16 L Hgb 9.7 L Hct 29.2 L MCV 92.4 MCH 30.7 MCHC 33.2 RDW 14.6 H Plt Count 135 L MPV 12.8 H Immature Gran % (Auto) 1.4 H Neut % (Auto) 77.9 H Lymph % (Auto) 12.8 L Schleicher % (Auto) 6.2 Eos % (Auto) 1.4 Baso % (Auto) 0.3 Lymph # (Auto) 1.59 Schleicher # (Auto) 0.8 H Eos # (Auto) 0.2 Baso # (Auto) 0.0 Abs Immat Gran (auto) 0.18 H Absolute Neuts (auto) 9.7 H Absolute Nucleated RBC 0.000 Nucleated RBC % 0.0 Sodium 135 L Potassium 4.0 Chloride 105 Carbon Dioxide 26 Anion Gap 4 BUN 12 Creatinine 0.86 Estim Creat Clear Calc 113 Estimated GFR > 60 Glucose 101 Uric Acid 9.5 H Calcium 8.3 L Total Bilirubin 0.2 AST 23 ALT 23 Alkaline Phosphatase 106 Total Protein 5.6 L Albumin 2.9 L OB - PN A/P Plan day: 2 Plan: routine care and discharge home Comments: Persistently elevated blood pressure, to double the labetalol. Observed till she is in the 140s over 90s. Then discharge Time Spent With Patient Time: Total time spent is greater than 50% in coordination of care (as documented) at patient's floor/unit and/or counseling patient: Exam Const: General: comfortable and no acute distress Resp: Effort & Inspection: normal respiratory effort Auscultation: no rales, no rhonchi and no wheezes Cardio: Rate: regular rate Heart sounds: no click, no murmurs and no rubs GI: GI Palp: Yes Soft to palpation and No Tenderness to palpation present (GI) Auscultation: normal bowel sounds Extrem: General: normal to inspection, no pedal edema and no calf tenderness
--- NOTE | 2025-06-02 10:43 | PC.NURSE ---
Per Dr Joya, take BP one hour after giving labtelol. If still elevated than give patient another 200mg of labetelol and recheck in 1 hour.
--- NOTE | 2025-06-02 10:50 | PC.NURSE ---
Consulted with mother concerning needs and she shared her ability to independently pump without pain. was transferred to [facility]. Baby is taking a bottle today with donor breast milk. Mom feels concerned that her pumping volume is so minimal today. We reviewed hand expression and hands on pumping. A pumping plan was added to her discharge packet. Strongly encouraged consistency with pumping and making 8 sessions a day her goal. Reinforced understanding of milk production, transition of milk, prevention/relief of engorgement, plugged ducts, mastitis, community resources (already has WIC and received a breast pump), and when to call a provider using the resource of the mom and baby guide. She has the phone number and knows we are available to assist if she needs help once baby is discharged. Mother voiced understanding of the information shared, is confident to continue effectively pumping every 3 hours at home, when to call for assistance, denies any additional assistance or education at this time. Reported to the Primary RN.
[2025-06-02 11:00] VITALS: BP 140/92
[2025-06-02 11:30] VITALS: BP 140/92
[2025-06-04 10:47] VITALS: BP 136/84; PULSE 84; RESP 18; TEMP 36.6; O2SAT 99
--- NOTE | 2025-06-04 11:02 | PM.OBDSVD ---
DS: Admitting Diagnosis Discharge Date 06/02/25 Admitting Diagnosis iol DS: Discharge Diagnosis Discharge Diagnosis (1) Vaginal delivery: Code(s): O80 - Encounter for full-term uncomplicated delivery Status: Acute OB - DS: Summary OB Procedures : None OB Procedures Intrapartum: Spontaneous Vag Delivery OB Procedures: : None Peripartum Data Laceration Description: Perineal - 1st Degree and Labial (left) Episiotomy description: None Time Spent with Patient Time attestation: Total time spent providing and/or coordinating discharge services: Discharge Plan Discharge Discharging Clinician: Fritz Joya Anticipated Discharge Date/Time: 06/02/25 11:53 Patient Disposition: Home Activity: pelvic rest Diet: regular Wound Care Instructions: other - see discharge instructions Discharge Instructions: Education: Mom and Baby Guide Given to: Mother Follow-Up: Call your delivering provider's office for an appointment to be seen in: 6 Weeks Mom and baby should come to the [facility] for the follow-up appointment. Appointment Date/Time: June 04, 2025 at 10:00 am What to expect at your follow-up visit: Blood Pressure Check Physical Assessment Call [phone] if you are unable to keep your appointment time. BREAST CARE: * Wear a snug supportive bra. * For engorgement discomfort: Breast Feeding: * Apply warm moist washcloths * Express milk as needed to relieve engorgement * Wear loose clothing Bottle Feeding: * May apply ice packs * For sore nipples: * Identify correct latch-on * Apply warm moist washcloths before and after nursing * Air dry nipples after nursing * May apply Lansinoh cream to nipples EPISIOTOMY/PERINEAL CARE: * Until bleeding stops, use your dianne bottle after urinating * Change your pad frequently throughout the day * You may take sitz baths several times a day (fill your bathtub with warm water and soak for 20 minutes.) Do NOT bathe in the water * No tub baths until seen by your physician - You may shower ACTIVITY: * Rest as much as possible. * Do not exercise or lift anything heavier than your baby (such as laundry or other children.) * Avoid stairs or driving as much as possible. * Do not put anything into the vagina. No douching, tampons, or sexual activity until seen by physician. NOTIFY PHYSICIAN IF YOU HAVE ANY QUESTIONS OR IF ANY OF THE FOLLOWING SYMPTOMS OCCUR: * If your perineum becomes red, swollen, or more painful than what you have experienced in the hospital. * If your vaginal bleeding becomes foul smelling. * If your vaginal bleeding becomes more heavy than a period or if your bleeding changes from pink to bright red. However, you may pass an occasional walnut-sized clot once or twice for the first week . * If you experience a sharp, shooting pain in you calves. * If you discover a hard, reddened area on your breast or if you experience flu-like symptoms. DIET: * Eat regular, well-balanced meals. * Drink plenty of fluids daily. If , drink to thirst. FEEDING PLAN: You are exclusively pumping at discharge. It is important to pump regularly and consistently to help initiate your milk supply. Regular milk removal is necessary for continued milk production. You need to pump at least 8 times every 24 hours. You can use hands on pumping to get better results with pumping and to encourage your breasts to produce more milk. Hands on pumping instructions: 1.? Massage your breasts before applying the breast pump. 2.? Pump both breasts at once. Use your hands to massage and compress while you pump. 3.? Stop pumping when the milk stops flowing 4.? Massage your breasts again 5.? End the pumping session by pumping or hand expressing one breast at a time while massaging and compressing your breast. Go back and forth between each breast until the milk stops flowing. 6.? Allow 25 minutes to complete this routine ? It is important to be sure you have a well-fitted pump flange. Consult your pump manual for recommended flange sizing or consult a professional. YOU SHOULD SET YOUR PUMP TO THE HIGHEST COMFORTABLE LEVEL. INCREASE THE SUCTION GRADUALLY UNTIL YOU REACH THE CORRECT SETTING. PUMPING SHOULD NOT HURT. CONSULT YOUR PUMP MANUAL FOR GUIDANCE ON PUMP SETTINGS AND FUNCTIONS. MOST PUMPS RECOMMEND 1-2 MINUTES OF THE QUICK ?MASSAGE? MODE, THEN SWITCHING TO THE SLOWER ?EXPRESSION? MODE FOR THE REMAINDER OF THE PUMPING SESSION. Pump each breast for 10-15 minutes. Pumping will help stimulate your breasts to produce milk. ?Follow the collection and storage sheet given to you in the Mom and Baby Guide. Remember to keep track of all feedings/elimination on the blue worksheet provided. Clean your pump parts between each pumping session according to the guidelines in your pump manual. It is recommended that you use a basin that is reserved for washing pump parts that is separate from your sink to prevent contamination. If you are pumping for an ill or infant, you should disinfect your pump parts once a day by boiling them in hot water for 5 minutes after cleaning. Ways to increase your milk supply: ? Increase frequency of pumping (10-12 times every 24 hours) ? Lots of skin to skin (if infant is able), especially before pumping ? Use warm washcloths before pumping and gentle breast massage before and during pumping ? Reduce stress, relax with music, get plenty of rest, and drink to thirst ? Warm pump flanges with warm water before pumping ? Pump until the milk stops flowing, then pump for 2 more minutes to fully empty the breast ? Pump at least once through the night, milk shouldn't remain in the breast for longer than 4 hours ? Power pumping: Pump for 15-20 minutes, rest for 10 minutes, pump for 10, rest for 10, pump for 10. Do this routine 1-2 times a day for several days or until you notice an increase in milk supply. Pump normally between power pumping sessions. You may contact the Team at [phone] for questions and appointments. Patient Instructions: Antibiotic Form Patient Language: Citizen Of [place] Stand Alone Forms: General Discharge Information Follow-up/Referrals: Fritz Joya MD [Physician, [employer]] Discharge Medications: New labetalol 200 mg tablet 400 mg PO Q12H Qty: 120 3RF Continued aspirin 81 mg capsule 81 mg PO DAILY fluticasone propionate 50 mcg/actuation spray,suspension 1 spray INTRANASAL DAILY duloxetine 30 mg capsule,delayed release(DR/EC) 30 mg PO DAILY escitalopram oxalate 20 mg tablet 20 mg PO DAILY fluticasone propion-salmeterol 500-50 mcg/dose blister with device 1 inh INHALATION DAILY M-Dl Plus 27 mg iron- 1 mg tablet 1 tablet PO DAILY cetirizine [24Hour Allergy] 10 mg tablet 10 mg PO DAILY PRN (Reason: allergy symptoms) cholecalciferol (vitamin D3) [Vitamin D3] 50 mcg (2,000 unit) capsule 2,000 unit PO DAILY Date of admission: 05/29/25 12:51 Primary Care Provider: Lisette Guido Admitting Provider: Fritz Joya Attending physician on admission: Fritz Joya Condition: Stable
== END 2025-06-02 13:44 | disposition home or self-care (01) | DRG 807 ==
LOC: ANHOBOP 12:57 → ANHOBPP 12:57 → ANHOBOP 15:10 → ANHLDR 15:10 → ANHOB2 05-31 03:52
PROVIDERS: Advanced Practice Midwife; Admitting Provider Obstetrics & Gynecology; Visit Provider Obstetrics & Gynecology
DX: O14.94 Unspecified pre-eclampsia, complicating childbirth (principal); Z37.0 Single live birth; O69.81X0 Labor and delivery complicated by cord around neck, without compression, not applicable or unspecified; O70.0 First degree perineal laceration during delivery; O14.14 Severe pre-eclampsia complicating childbirth; O99.344 Other mental disorders complicating childbirth; O99.52 Diseases of the respiratory system complicating childbirth; J45.909 Unspecified asthma, uncomplicated; O99.214 Obesity complicating childbirth; E66.01 Morbid (severe) obesity due to excess calories; Z3A.36 36 weeks gestation of pregnancy
CPT/HCPCS: 36415; 59025; 76819; 76856; 80053; 81001; 82570; 83735; 84156; 84550; 85025; 85027; 85055; 85380; 85384; 85610; 85730; 86593; 86850; 86900; 86901; 99199; A9270; J0290; J1200; J2405; J2590; J2765; J2795; J3010; J3290; J3475; J7120